=== PATIENT | female | born 1965 | race Caucasian/White ===

== ENCOUNTER → 2017-09-23 08:59 | Outpatient (CLI) | payer OTHER, SELFPAY ==
[2017-09-29 11:31] LABS: HPV APTIMA, High Risk Negative (Negative)
== END ==
PROVIDERS: Visit Provider Nurse Practitioner Women's Health
DX: Z12.4 Encounter for screening for malignant neoplasm of cervix (principal)
CPT/HCPCS: 88175; G0145

== ENCOUNTER → 2017-09-27 09:44 | Outpatient (CLI) | payer OTHER, SELFPAY ==
[2017-09-27 11:16] LABS: Cholesterol 294 mg/dL (200); Glucose 109 mg/dL (74-106); High Density Lipoprotein 46 mg/dL; Thyroid Stim Hormone (TSH) 1.38 uIU/mL (0.358-3.74); Triglycerides 156 mg/dL; Very Low Density Lipoprotein 31 mg/dL (5-40)
== END ==
PROVIDERS: Family Provider Preventive Medicine Occupational Medicine; PCP Preventive Medicine Occupational Medicine; Visit Provider Nurse Practitioner Women's Health
DX: R63.8 Other symptoms and signs concerning food and fluid intake (principal); R63.5 Abnormal weight gain; R53.83 Other fatigue
CPT/HCPCS: 36415; 80061; 82947; 84443

== ENCOUNTER → 2017-10-04 09:40 | Outpatient (CLI) | payer OTHER, SELFPAY ==
[2017-10-04 09:44] LABS: Bacteria 0 SEEN /hpf (None Seen); Mucous, Urine 0 SEEN /hpf (<or=2+)
[2017-10-04 12:17] LABS: Absolute Lymphocyte Count 1.94 X10^3/ul (0.83-4.51); Absolute Neutrophil Count 4.3 X10^3/uL (2.0-7.7); Basophil# 0.02 X10^3/uL; Basophil% 0.3 % (0-1); Eosinophil# 0.15 X10^3/uL; Eosinophils% 2.1 % (0-5); Hematocrit 41.5 % (37-47); Hemoglobin 13.7 g/dl (12.0-15.0); Lymphocyte # 1.94 X10^3/ul (4.0); Lymphocyte % 27.5 % (19-41); Mean Platelet Vol. 9.7 fl (6.2-12.0); Monocyte# 0.67 X10^3/uL; Monocyte% 9.5 % (0-10); Neutrophil # 4.25 X10^3/uL (2.7-7.7); Neutrophil % 60.2 % (47-70); Platelet Count 306 K/mm3 (150-450); RBC Distribution Width SD 43.3 fl (35.1-43.9); Red Blood Count 4.56 M/mm3 (4.2-5.4); White Blood Count 7.1 K/mm3 (4.4-11.0)
[2017-10-04 12:18] LABS: Color, Urine Yellow (Yellow); Glucose, Dipstick Normal (Normal); Ketone-Dipstick Negative (Negative); Leukocyte Esterase-Dipstick 100 /ul (Negative); Nitrite-Dipstick Negative (Negative); Occult Blood-Urine 10 /ul (Negative); Protein-Dipstick Negative (Negative); Urine Bilirubin Dipstick Negative (Negative); Urine Clarity Sl. Cloudy (Clear); Urine Urobilinogen Normal (Normal)
[2017-10-04 12:21] LABS: POSITIVE COUNT NO; POSITIVE DIFFERENTIAL NO; POSITIVE MORPHOLOGY NO
[2017-10-04 12:24] LABS: Red Blood Cells-Urine 0-5 SEEN /hpf (0-5); Squamous Epithelial Cells - UA 0-5 SEEN /hpf (5-10); White Blood Cells 10-25 SEEN /hpf (0-5)
[2017-10-04 12:38] LABS: ALB/GLOB Ratio 1.1 RATIO (0.9-2.4); AST(SGOT) 22 U/L (15-37); Alanine Aminotransfer ALT/SGPT 36 U/L (13-56); Albumin, Serum 3.9 g/dL (3.2-5.0); Alkaline Phosphatase 115 U/L (45-117); Anion Gap 8 (5-15); BUN 11 mg/dL (7-18); BUN/Creat Ratio 15.3 RATIO (10-20); Calcium,Total 8.8 mg/dL (8.5-10.1); Chloride 106 mmol/L (98-107); Creatinine, Serum 0.72 mg/dL (0.55-1.02); EST Glomerular Filtration Rate 91 mL/min (>60); Est Glom Filt Rate - Afr Amer 110 mL/min (>60); Globulin 3.7 g/dL (2.2-4.2); Glucose 97 mg/dL (74-106); Potassium 3.9 mmol/L (3.5-5.1); Protein, Total 7.6 g/dL (6.4-8.2); Sodium Level 140 mmol/L (136-145)
[2017-10-04 12:44] LABS: Hemoglobin A1c 5.9 % (4.2-6.3)
== END ==
PROVIDERS: Family Provider Family Medicine; PCP Family Medicine; Visit Provider Family Medicine
DX: I10 Essential (primary) hypertension (principal); R73.09 Other abnormal glucose
CPT/HCPCS: 36415; 80053; 81001; 83036; 85025

== ENCOUNTER → 2017-10-28 13:32 | Outpatient (CLI) | payer OTHER, SELFPAY ==
--- NOTE | 2017-10-28 13:33 | ECHOD_ITS ---
Reason For Study: MVP Procedure This was a 2D Doppler, Color Flow transthoracic echocardiogram. Exam performed in department. Left Ventricle Normal LV size. Left ventricular systolic function is normal. The estimated ejection fraction is 60 %. Normal diastology for age. No regional wall motion abnormalities noted. Right Ventricle Normal RV size. Normal systolic function. Atria Normal left atrium. Normal right atrium. Mitral Valve Normal mitral valve. Mild (1+) eccentric mitral valve insufficiency. Tricuspid Valve Normal tricuspid valve. Mild (1+) tricuspid valve insufficiency. Pulmonary artery systolic pressure is 30 mmHg. Aortic Valve Normal aortic valve. Pulmonic Valve Normal pulmonic valve. Great Vessels Normal aortic root. The pulmonary artery is normal size. Inferior vena cava collapse with respiration. Pericardium/Pleural No pericardial effusion. MMode/2D Measurements & Calculations LVIDd: 4.3 cm IVSd: 0.95 cm Ao root diam: 3.0 cm LVIDs: 2.8 cm LVPWd: 0.95 cm LA dimension: 3.7 cm RVDd: 2.2 cm FS: 34.1 % LAV(MOD-bp): 46.6 ml LA A4 area: 16.7 cm2 RA A4 area: 8.1 cm2 LAV(MOD-bp) Indexed: 23.8 ml/m2 LAV(MOD-sp2): 46.1 ml LAV(MOD-sp4): 46.5 ml Doppler Measurements & Calculations MV E max lamine: 93.3 cm/sec Lat Peak E' Lamine: 8.8 cm/sec Med Peak E' Lamine: 6.7 cm/sec MV A max lamine: 86.8 cm/sec E/E' lat: 10.6 E/E' med: 13.9 MV E/A: 1.1 Ao V2 max: 122.9 cm/sec LV V1 max: 117.5 cm/sec PA V2 max: 85.9 cm/sec Ao max P.0 mmHg LV V1 max P.5 mmHg PI end-d lamine: 91.0 cm/sec TR max lamine: 253.5 cm/sec TR max P.8 mmHg Interpretation Summary Normal LV size. Left ventricular systolic function is normal. The estimated ejection fraction is 60 %. Normal diastology for age. Structurally normal valves. Ordering Physician: Bertin Moore Referring Physician: Bertin Moore Performed By: Grace Rocha, EVELIO, RVT
== END ==
PROVIDERS: Family Provider Family Medicine; PCP Family Medicine; Visit Provider Family Medicine
DX: I34.1 Nonrheumatic mitral (valve) prolapse (principal)
CPT/HCPCS: 93306

== ENCOUNTER → 2017-11-03 09:09 | Outpatient (CLI) | payer OTHER, SELFPAY ==
[2017-11-03 10:37] LABS: Anion Gap 9 (5-15); BUN 16 mg/dL (7-18); Calcium,Total 9.1 mg/dL (8.5-10.1); Chloride 103 mmol/L (98-107); Creatinine, Serum 0.73 mg/dL (0.55-1.02); EST Glomerular Filtration Rate 90 mL/min (>60); Est Glom Filt Rate - Afr Amer 109 mL/min (>60); Glucose 101 mg/dL (74-106); Potassium 3.6 mmol/L (3.5-5.1); Sodium Level 138 mmol/L (136-145)
== END ==
PROVIDERS: Family Provider Family Medicine; PCP Family Medicine; Visit Provider Family Medicine
DX: I10 Essential (primary) hypertension (principal)
CPT/HCPCS: 36415; 80048

== ENCOUNTER → 2018-01-31 09:28 | Outpatient (CLI) | payer OTHER, SELFPAY ==
[2018-01-31 10:27] LABS: Hematocrit 40.3 % (37-47); Hemoglobin 13.1 g/dl (12.0-15.0); Mean Corp Hgb Conc 32.5 g/gl (32-36); Mean Corpuscular Hgb 30.1 pg (27.0-32.0); Mean Corpuscular Volume 92.6 fL (81-99); Mean Platelet Vol. 9.2 fl (6.2-12.0); Platelet Count 302 K/mm3 (150-450); RBC Distribution Width CV 12.7 % (11.6-14.6); RBC Distribution Width SD 42.2 fl (35.1-43.9); Red Blood Count 4.35 M/mm3 (4.2-5.4); White Blood Count 7.6 K/mm3 (4.4-11.0)
[2018-01-31 10:30] LABS: Scan Indicated on CBC? Y/N NO
[2018-01-31 10:40] LABS: Hemoglobin A1c 5.5 % (4.2-6.3)
[2018-01-31 10:52] LABS: AST(SGOT) 17 U/L (15-37); Alanine Aminotransfer ALT/SGPT 26 U/L (13-56); Alkaline Phosphatase 101 U/L (45-117); Anion Gap 3 (5-15); BUN 16 mg/dL (7-18); BUN/Creat Ratio 19.5 RATIO (10-20); Calcium,Total 9.3 mg/dL (8.5-10.1); Chloride 103 mmol/L (98-107); Cholesterol 149 mg/dL (200); Creatinine, Serum 0.82 mg/dL (0.55-1.02); EST Glomerular Filtration Rate 78 mL/min (>60); Est Glom Filt Rate - Afr Amer 95 mL/min (>60); Globulin 3.9 g/dL (2.2-4.2); Glucose 111 mg/dL (74-106); High Density Lipoprotein 50 mg/dL; Potassium 3.9 mmol/L (3.5-5.1); Protein, Total 7.9 g/dL (6.4-8.2); Sodium Level 137 mmol/L (136-145); Triglycerides 132 mg/dL; Very Low Density Lipoprotein 26 mg/dL (5-40)
== END ==
PROVIDERS: Family Provider Family Medicine; PCP Family Medicine; Visit Provider Family Medicine
DX: I10 Essential (primary) hypertension (principal); E78.5 Hyperlipidemia, unspecified
CPT/HCPCS: 36415; 80053; 80061; 83036; 85027

== ENCOUNTER → 2018-06-03 10:14 | Outpatient (CLI) | payer OTHER, SELFPAY ==
[2018-06-03 12:56] LABS: Absolute Lymphocyte Count 1.69 X10^3/ul (0.83-4.51); Absolute Neutrophil Count 3.5 X10^3/uL (2.0-7.7); Basophil# 0.02 X10^3/uL; Basophil% 0.3 % (0-1); Eosinophil# 0.09 X10^3/uL; Eosinophils% 1.5 % (0-5); Hematocrit 41.2 % (37-47); Hemoglobin 13.3 g/dl (12.0-15.0); Lymphocyte # 1.69 X10^3/ul (4.0); Lymphocyte % 28.5 % (19-41); Mean Corp Hgb Conc 32.3 g/gl (32-36); Mean Corpuscular Hgb 29.8 pg (27.0-32.0); Mean Corpuscular Volume 92.4 fL (81-99); Mean Platelet Vol. 9.6 fl (6.2-12.0); Monocyte# 0.57 X10^3/uL; Monocyte% 9.6 % (0-10); Neutrophil # 3.54 X10^3/uL (2.7-7.7); Neutrophil % 59.9 % (47-70); Platelet Count 308 K/mm3 (150-450); RBC Distribution Width CV 12.8 % (11.6-14.6); RBC Distribution Width SD 42.1 fl (35.1-43.9); Red Blood Count 4.46 M/mm3 (4.2-5.4); White Blood Count 5.9 K/mm3 (4.4-11.0)
[2018-06-03 12:57] LABS: POSITIVE COUNT NO; POSITIVE DIFFERENTIAL NO; POSITIVE MORPHOLOGY NO
[2018-06-03 13:15] LABS: Hemoglobin A1c 5.4 % (4.2-6.3)
[2018-06-03 13:19] LABS: AST(SGOT) 16 U/L (15-37); Alanine Aminotransfer ALT/SGPT 21 U/L (13-56); Albumin, Serum 3.8 g/dL (3.2-5.0); Alkaline Phosphatase 83 U/L (45-117); Anion Gap 9 (5-15); BUN 21 mg/dL (7-18); BUN/Creat Ratio 28.6 RATIO (10-20); Calcium,Total 9.1 mg/dL (8.5-10.1); Chloride 104 mmol/L (98-107); Cholesterol 138 mg/dL (200); Creatinine, Serum 0.74 mg/dL (0.55-1.02); EST Glomerular Filtration Rate 89 mL/min (>60); Est Glom Filt Rate - Afr Amer 107 mL/min (>60); Globulin 3.7 g/dL (2.2-4.2); Glucose 88 mg/dL (74-106); High Density Lipoprotein 44 mg/dL; Potassium 3.6 mmol/L (3.5-5.1); Protein, Total 7.5 g/dL (6.4-8.2); Sodium Level 140 mmol/L (136-145); Triglycerides 79 mg/dL; Very Low Density Lipoprotein 16 mg/dL (5-40)
--- OUTSIDE RECORDS SUMMARY | 2018-07-29 05:19 | XMS RPT_ITS ---
:1965 Author Organization OHIP Care Team Providers Name Role Phone Vickei Emery Attending Unavailable Bertin Moore Attending Unavailable Bertin Moore Referring Unavailable Bertin Moore Primary Care Unavailable Astrid Ball Attending Unavailable Bertin Moore Referring Unavailable Bertin Moore Attending Unavailable Bertin Moore Referring Unavailable Bertin Moore Primary Care Unavailable Bertin Moore Attending Unavailable Bertin Moore Primary Care Unavailable Bertin Moore Attending Unavailable Bertin Moore Referring Unavailable Bertin Moore Primary Care Unavailable Bertin Moore Attending Unavailable Bertin Moore Primary Care Unavailable LizzyAstrid Attending Unavailable Calhoun, Astrid Referring Unavailable Srinivasan Ward Primary Care Unavailable Calhoun, Astrid Attending Unavailable Lizzy, Astrid Referring Unavailable Lizzy, Astrid Attending Unavailable PROBLEMS PROBLEMS DATE TYPE CONDITION / CODE ATTENDING STATUS SOURCE 06/07/2018 Unknown Z97.5 - Presence of Cal[place]oun[place]na cannony Active [facility] (intrauterine) [facility] contraceptive [facility] device / Repository Z97.5(ICD-10) 06/07/2018 Unknown Z34.90 - Encounter Lizzy, Astrid Active [facility] for supervision of [facility] normal , Hospital unspecified, Repository unspecified trimester / Z34.90(ICD-10) 11/23/2017 Unknown I34.1 - Vickie [place] Active [facility] Nonrheumatic mitral Community (valve) prolapse / Hospital I34.1(ICD-10) Repository 09/23/2017 Unknown R53.83 - Other Calhoun, Astrid Active [facility] fatigue / Community R53.83(ICD-10) Hospital Repository 09/23/2017 Unknown R63.5 - Abnormal Lizzy, Astrid Active [facility] weight gain / Community R63.5(ICD-10) Hospital Repository 09/23/2017 Unknown R63.8 - Other Calhoun, Astrid Active [facility] symptoms and signs Community concerning food and Hospital fluid intake / Repository R63.8(ICD-10) 09/23/2017 Unknown Z12.31 - Encounter Calhoun, Astrid Active [facility] for screening [facility] mammogram for Hospital malignant neoplasm Repository of breast / Z12.31(ICD-10) 09/24/2017 Unknown Z12.4 - Encounter Lizzy, Astrid Active [facility] for screening for [facility] malignant neoplasm Hospital of cervix / Repository Z12.4(ICD-10) PROCEDURES PROCEDURES No Procedure Records FoundRESULTS RESULTS 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 [place] [address] OFFICE VISIT Date of Service: 09/23/17 MR#: [id number] Acct: [id number] Name: PAULINA RUBIO Rep #: [id number] : 1965 Provider: KIM Ball Age/Sex: 51/F Location: [facility] [place] Status: Signed with Addenda ADDENDUM by KIM Ball on 06/17/18 at 1118 Addendum entered and electronically signed by JOHN Oro 06/17/18 11:18: Rectal exam was deferred. No masses palpated Assessment AND Plan 1. Encounter for gynecological examination without abnormal finding Z01.419 2. Encounter for IUD removal Z30.432 Orders Orders: 3. Pap smear for cervical cancer screening Z12.4 Orders Orders: 4. Encounter for screening mammogram for malignant neoplasm of breast Z12.31 Plan - JOHN Oro Completed breast and pelvic exam Reviewed diet and exercise Pap thin prep pap with HPV Mammogram ordered Mirena IUD removed. 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 Required: No Is patient in pain?: No Allergies No Known Allergies Allergy (Verified 09/23/17 15:08) Medications levonorgestrel 20 mcg/24 hr (5 years) intrauterine device 1 insert INTRAUTERINE ONCE 09/23/17 [History Confirmed 09/23/17] Is last menstrual period known: Yes Last Menstral Period: 09/19/17 Post menopausal: No [facility] : No [facility] Family History Sister Diabetes Father Diabetes Social History alcohol intake: never substance use type: does not use caffeine: Yes what type of physical activity do you participate in: none seatbelt use: always do you feel safe at home: Yes additional social history: - Don-Diabetica 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 DatName GA/WeeksOutcome Route [facility] LocaProviderFOB e ht en ia tn 09/22/95[place] 10/29/98[facility] Encounter for routine gynecological examination: Details: PAULINA RUBIO is a 51 year old who presents for annual exam. Mirena IUD in place for menorrhagia >5 years. Had first full menses this week. Last PAP: 2012 History of abnormal PAP: no Last mammogram: > 1 yr ago History of abnormal mammogram: no Female Reproductive History Last Menstral Period: 09/19/17 Exam Const General: cooperative, healthy appearing, no acute distress, well developed Orientation: alert, oriented to person, oriented to place HENME Head: normal to inspection Neck Neck: normal visual inspection Thyroid: thyroid normal Lymphatic: no lymphadenopathy noted Chest Breast inspection: normal inspection of the breasts, normal inspection of the axillae Breast palpation: normal palpation of the breasts, normal palpation of the axillae, no axillary lymphadenopathy Resp Effort AND Inspection: normal respiratory effort GI Palpation: soft, nontender, no masses Rectal Exam: mass, deferred External Female Exam: normal external appearance, normal appearance of the urethra Urethra: normal appearance of the urethra, normal palpation Speculum Exam - Vagina: normal appearance of the vagina, normal vaginal discharge Speculum Exam - Cervix: normal appearance of the cervix, other (pap collected) Bimanual Exam- Vagina AND Uterus: normal bimanual exam, uterine size normal, uterine shape normal, uterus non-tender Bimanual Exam- Adnexa, other: normal adnexae, no adnexal masses, adnexae non-tender, pelvic support normal Pelvic Support: normal Other: IUD easily removed Neuro General: alert, oriented x3 Psych Affect: normal affect Office Procedures IUD Removal IUD Removal Details: Sign out documentation: Completed Procedure: Speculum placed in vagina, IUD string visualized and grasped with ring forceps. Assessment AND Plan 1. Encounter for gynecological examination without abnormal finding Z01.419 2. Encounter for IUD removal Z30.432 Orders Orders: 3. Pap smear for cervical cancer screening Z12.4 Orders Orders: 4. Encounter for screening mammogram for malignant neoplasm of breast Z12.31 Plan Completed breast and pelvic exam Reviewed diet and exercise Pap thin prep pap with HPV Mammogram ordered Mirena IUD removed. Discussed that if recurrence of heavy, consider replacement of mirena IUD RTO 1 year, prn with problems Astrid Ball INTERNAL CONTROL ANALYST Orders Orders: Plan Detail Other Orders Orders: Coding Level of Care Code Off vis,est,prev 40-64yrs Diagnoses Encounter for gynecological examination without abnormal finding Z01.419 Gynecological examination findings: abnormal findings ABSENT Encounter for IUD removal Z30.432 Pap smear for cervical cancer screening Z12.4 Encounter for screening mammogram for malignant neoplasm of breast Z12.31 09/23/17 1642 <Electronically signed by Astrid LOPEZ> Date Astrid LOPEZ Cosigner Signature: Date (if applicable) CC: 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 [address] [place] [address] OFFICE VISIT Date of Service: 06/07/18 MR#: [id number] Acct: [id number] Name: PAULINA RUBIO Rep #: [id number] : 1965 Provider: KIM Ball Age/Sex: 52/F [place] [facility] [place]: Signed Intake Vital Signs06/07/18 Height 5 ft 5 in 06/07/18 Weight: 171 lb 06/07/18 Body Mass Index (BMI) 28.4 06/07/18 Blood Pressure 122/84 H Intake Visit Reasons: INSERT MIRENA IUD Garage Manager Required: No Is patient in pain?: No Allergies No Known Allergies Allergy (Verified 06/07/18 13:42) Medications hydrochlorothiazide 12.5 mg tablet 12.5 mg PO DAILY 06/07/18 [History Confirmed 06/07/18] lisinopril 10 mg tablet 10 mg PO DAILY 06/07/18 [History Confirmed 06/07/18] rosuvastatin 20 mg tablet 20 mg PO DAILY 06/07/18 [History Confirmed 06/07/18] Is last menstrual period known: No Post menopausal: No Patient : No : No PFSH PFSH Medical History Mitral valve prolapse (Chronic) Family History Sister Diabetes Father Diabetes Social History alcohol intake: never substance use type: does not use caffeine: Yes what type of physical activity do you participate in: none seatbelt use: always do you feel safe at home: Yes additional social history: - Don-Diabetica 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 DatName GA/WeeksOutcome Route [facility] LocaProviderFOB e ht en [facility] tn 09/22/95[place] 10/29/98[facility] INSERT MIRENA IUD: Details: PAULINA RUBIO is a 52 year old who presents for Office Procedures Liletta IUD IUD GC/Chlamydia:: not done Test: Yes positive Consent Signed: Yes Time out checklist: patient, procedure, site marked/identified, positioning of patient, supplies available, allergies confirmed, team agrees on procedure IUD: Yes Beth Time out time: 13:50 Details: Sign in Communication: Completed Sign out documentation: Completed The uterus sounded to 8 cm. After prepping the cervix with betadine and using sterile technique, the cervix was grasped with a single tooth tenaculum and the IUD was inserted without difficulty and the string was cut to 3cm from the external os of the cervix. All instruments were removed from the vagina and excellent hemostasis was noted. Procedure Summary: patient tolerated the procedure well without complication. levonorgestrel 20 mcg/24 hr (5 years) intrauterine device 1 insert Intrauterine ONCE IUD Details: Sign in Communication: Completed Sign out documentation: Completed The uterus sounded to [] cm. After prepping the cervix with betadine and using sterile technique, the cervix was grasped with a single tooth tenaculum and the IUD was inserted without difficulty and the string was cut to 3cm from the external os of the cervix. All instruments were removed from the vagina and excellent hemostasis was noted. Procedure Summary: patient tolerated the procedure well without complication. Office Meds levonorgestrel Performing Provider: JOHN Oro Documented (not given) by: JOHN Oro on 06/07/18 13:50 Dose Route Admin Location Lot Number Expiration Date NDC Medical Territory Manager 1 insert Intrauterine Assessment AND Plan Problems 1. Encounter for IUD insertion Z30.430 2. Menorrhagia with regular cycle N92.0 Plan Reviewed S AND S infection and condom use. Written information given RTO 6 weeks Orders Orders: Medications New: Coding Level of Care Code No Charge Diagnoses Encounter for IUD insertion Z30.430 Menorrhagia with regular cycle N92.0 Additional Codes IUD (69679) 06/07/18 1511 <Electronically signed by Astrid LOPEZ> Date Astrid LOPEZ Cosigner Signature: Date (if applicable) CC: CBC W/DIFF, AUTOMATED Collected: 06/03/2018 Status: F Source: [facility] 10:46 AM [facility] REPOSITORY TYPE CODE TESTS RESULT OUT OF RANGE REFERENCE UNITS LAB L100.1000 4.4-11.0 K/mm3 Normal WBC 5.9 LAB L100.1200 4.2-5.4 M/mm3 Normal RBC 4.46 LAB L100.1300 12.0-15.0 g/dl Normal HGB 13.3 LAB L100.1400 37-47 % Normal HCT 41.2 LAB L100.1500 81-99 fL Normal MCV 92.4 LAB L100.1600 27.0-32.0 pg Normal MCH 29.8 LAB L100.1700 32-36 g/gl Normal MCHC 32.3 LAB L100.1810 11.6-14.6 % Normal RDW CV 12.8 LAB L100.1820 35.1-43.9 fl Normal RDW SD 42.1 LAB L100.1900 150-450 K/mm3 Normal PLT 308 LAB L100.2000 6.2-12.0 fl Normal MPV 9.6 LAB L100.2100 47-70 % Normal NEUT% 59.9 LAB L100.2200 19-41 % Normal LY% 28.5 LAB L100.2300 0-10 % Normal MONO% 9.6 LAB L100.2400 0-5 % Normal EO% 1.5 LAB L100.2500 0-1 % Normal BASO% 0.3 LAB L100.2550 0.0-0.9 % Normal IM GRAN % 0.200 Result Comment: IG% - Immature Granulocytes (promyelocytes, myelocytes and metamyelocytes) > 1% indicates that a LEFT SHIFT is Present. LAB L100.2620 2.0-7.7 X10 3/uL Normal Absolute Neut 3.5 LAB L100.2720 0.83-4.51 X10 3/ul Normal Absolute Lymph 1.69 Performed By: #### L100.0100 #### [facility] [address] [place], [place], [address] HEMOGLOBIN A1C Collected: 06/03/2018 Status: F Source: [place] 10:46 AM [facility] REPOSITORY TYPE CODE TESTS RESULT OUT OF RANGE REFERENCE UNITS LAB L501.9985 4.2-6.3 % Normal HGB A1C 5.4 Performed By: #### L501.9985 #### [facility] [address] [place], [place], [address] COMPREHENSIVE METABOLIC Collected: 06/03/2018 Status: F Source: [facility] 10:46 AM [facility] REPOSITORY TYPE CODE TESTS RESULT OUT OF RANGE REFERENCE UNITS LAB L501.0100 74-106 mg/dL Normal GLU 88 Result Comment: Please note revised GLUCOSE reference range effective 2017. LAB L501.1000 7-18 mg/dL High BUN 21 LAB L501.1100 0.55-1.02 mg/dL Normal CREAT,SERUM 0.74 Result Comment: The validity of the calculated GFR AND GFRAA in patients over 70 years has not been determined. Clinical correlation is essential. LAB L501.1110 >60 mL/min Normal EST GFR 89 Result Comment: Non- GFR Calc LAB L501.1115 >60 mL/min Normal EST GFR - AA 107 Result Comment: GFR Calc LAB L501.1300 10-20 RATIO High BUN/CRE 28.6 LAB L501.1500 6.4-8.2 g/dL T Normal PROT 7.5 LAB L501.1800 3.2-5.0 g/dL Normal ALB 3.8 LAB L501.1950 2.2-4.2 g/dL Normal GLOB 3.7 LAB L501.2000 0.9-2.4 RATIO Normal A/G 1.0 LAB L501.2200 8.5-10.1 mg/dL CA Normal 9.1 LAB L501.4100 15-37 U/L Normal AST 16 LAB L501.4305 45-117 U/L Normal ALK P 83 LAB L501.4405 13-56 U/L Normal ALT 21 LAB L501.4600 0.20-1.00 mg/dL T Normal BILI 0.30 LAB L501.5300 136-145 mmol/L NA Normal 140 LAB L501.5600 3.5-5.1 mmol/L K Normal 3.6 LAB L501.5900 98-107 mmol/L CL Normal 104 LAB L501.6100 21.0-32.0 mmol/L Normal CO2 27.0 LAB L501.6200 5-15 Normal GAP 9 Performed By: #### L500.4050, L500.4100 #### [facility] [address] [place], [place], [address] LIPID PROFILE Collected: 06/03/2018 Status: F Source: [place] 10:46 AM [facility] REPOSITORY TYPE CODE TESTS RESULT OUT OF RANGE REFERENCE UNITS LAB L501.4900 200 mg/dL Normal CHOL 138 Result Comment: <200 mg/dL Desirable 200-240 mg/dL Borderline >240 mg/dL High Risk LAB L501.5000 mg/dL Normal TRIG 79 Result Comment: The drugs N-Acetylcysteine and Metamizole may falsely depress this assay. Serum Triglycerides Reference Interval Normal <150 mg/dL Borderline high 150 - 199 mg/dL High 200 - 499 mg/dL Very High > or = 500 mg/dL LAB L501.6400 mg/dL Normal HDL 44 Result Comment: The drugs N-Acetylcysteine and Metamizole may falsely depress this assay. Reference Range HDL <40 mg/dL Low HDL Cholesterol HDL >or= 60 mg/dL High HDL Cholesterol LAB L501.6500 0-130 mg/dL Normal LDL 78 LAB L501.6600 5-40 mg/dL Normal VLDL 16 Performed By: #### L500.4050, L500.4100 #### [facility] [place], [address] CBC-COMPLETE BLOOD CNT Collected: 01/31/2018 Status: F Source: [place] NO DIFF 9:51 AM [facility] REPOSITORY Order Comment: Order Date: 01/31/18 Order Info: [id number] - CBC TYPE CODE TESTS RESULT OUT OF RANGE REFERENCE UNITS LAB L100.1000 4.4-11.0 K/mm3 Normal WBC 7.6 LAB L100.1200 4.2-5.4 M/mm3 Normal RBC 4.35 LAB L100.1300 12.0-15.0 g/dl Normal HGB 13.1 LAB L100.1400 37-47 % Normal HCT 40.3 LAB L100.1500 81-99 fL Normal MCV 92.6 LAB L100.1600 27.0-32.0 pg Normal MCH 30.1 LAB L100.1700 32-36 g/gl Normal MCHC 32.5 LAB L100.1810 11.6-14.6 % Normal RDW CV 12.7 LAB L100.1820 35.1-43.9 fl Normal RDW SD 42.2 LAB L100.1900 150-450 K/mm3 Normal PLT 302 LAB L100.2000 6.2-12.0 fl Normal MPV 9.2 Performed By: #### L100.0500, L501.9985, L500.4050, L500.4100 #### [facility] [address] [place], [address] HEMOGLOBIN A1C Collected: 01/31/2018 Status: F Source: [place] 9:51 AM [facility] REPOSITORY Order Comment: Order Date: 01/31/18 Order Info: [id number] - A1C TYPE CODE TESTS RESULT OUT OF RANGE REFERENCE UNITS LAB L501.9985 4.2-6.3 % Normal HGB A1C 5.5 Performed By: #### L100.0500, L501.9985, L500.4050, L500.4100 #### [facility] [address] [place], [place], [address] COMPREHENSIVE METABOLIC Collected: 01/31/2018 Status: F Source: [facility] 9:51 AM [facility] REPOSITORY Order Comment: Order Date: 01/31/18 Order Info: [id number] - CMP Order Info: [id number] - LIPID TYPE CODE TESTS RESULT OUT OF RANGE REFERENCE UNITS LAB L501.0100 74-106 mg/dL High GLU 111 Result Comment: Fasting Glucose result from 100 to 125 mg/dL suggests IMPAIRED HOMEOSTASIS per A.D.A. criteria. Please note revised GLUCOSE reference range effective 2017. LAB L501.1000 7-18 mg/dL Normal BUN 16 LAB L501.1100 0.55-1.02 mg/dL Normal CREAT,SERUM 0.82 Result Comment: The validity of the calculated GFR AND GFRAA in patients over 70 years has not been determined. Clinical correlation is essential. LAB L501.1110 >60 mL/min Normal EST GFR 78 Result Comment: Non- GFR Calc LAB L501.1115 >60 mL/min Normal EST GFR - AA 95 Result Comment: GFR Calc LAB L501.1300 10-20 RATIO Normal BUN/CRE 19.5 LAB L501.1500 6.4-8.2 g/dL T Normal PROT 7.9 LAB L501.1800 3.2-5.0 g/dL Normal ALB 4.0 LAB L501.1950 2.2-4.2 g/dL Normal GLOB 3.9 LAB L501.2000 0.9-2.4 RATIO Normal A/G 1.0 LAB L501.2200 8.5-10.1 mg/dL CA Normal 9.3 LAB L501.4100 15-37 U/L Normal AST 17 LAB L501.4305 45-117 U/L Normal ALK P 101 LAB L501.4405 13-56 U/L Normal ALT 26 LAB L501.4600 0.20-1.00 mg/dL T Normal BILI 0.30 LAB L501.5300 136-145 mmol/L NA Normal 137 LAB L501.5600 3.5-5.1 mmol/L K Normal 3.9 LAB L501.5900 98-107 mmol/L CL Normal 103 LAB L501.6100 21.0-32.0 mmol/L Normal CO2 31.0 LAB L501.6200 5-15 Low GAP 3 Performed By: #### L100.0500, L501.9985, L500.4050, L500.4100 #### [facility] [address] [place], [address] LIPID PROFILE Collected: 01/31/2018 Status: F Source: [place] 9:51 AM [facility] REPOSITORY Order Comment: Order Date: 01/31/18 Order Info: [id number] - CMP Order Info: [id number] - LIPID TYPE CODE TESTS RESULT OUT OF RANGE REFERENCE UNITS LAB L501.4900 200 mg/dL Normal CHOL 149 Result Comment: <200 mg/dL Desirable 200-240 mg/dL Borderline >240 mg/dL High Risk LAB L501.5000 mg/dL Normal TRIG 132 Result Comment: The drugs N-Acetylcysteine and Metamizole may falsely depress this assay. Serum Triglycerides Reference Interval Normal <150 mg/dL Borderline high 150 - 199 mg/dL High 200 - 499 mg/dL Very High > or = 500 mg/dL LAB L501.6400 mg/dL Normal HDL 50 Result Comment: The drugs N-Acetylcysteine and Metamizole may falsely depress this assay. Reference Range HDL <40 mg/dL Low HDL Cholesterol HDL >or= 60 mg/dL High HDL Cholesterol LAB L501.6500 0-130 mg/dL Normal LDL 73 LAB L501.6600 5-40 mg/dL Normal VLDL 26 Performed By: #### L100.0500, L501.9985, L500.4050, L500.4100 #### [facility] [address] [place], [address] BASIC METABOLIC Collected: 11/03/2017 Status: F Source: [place] PROFILE (BMP) 9:10 AM [facility] REPOSITORY Order Comment: Order Date: 11/03/17 Order Info: [id number] - BMP TYPE CODE TESTS RESULT OUT OF RANGE REFERENCE UNITS LAB L501.0100 74-106 mg/dL Normal GLU 101 Result Comment: Fasting Glucose result from 100 to 125 mg/dL suggests IMPAIRED HOMEOSTASIS per A.D.A. criteria. Please note revised GLUCOSE reference range effective 2017. LAB L501.1000 7-18 mg/dL Normal BUN 16 LAB L501.1100 0.55-1.02 mg/dL Normal CREAT,SERUM 0.73 Result Comment: The validity of the calculated GFR AND GFRAA in patients over 70 years has not been determined. Clinical correlation is essential. LAB L501.1110 >60 mL/min Normal EST GFR 90 Result Comment: Non- GFR Calc LAB L501.1115 >60 mL/min Normal EST GFR - AA 109 Result Comment: GFR Calc LAB L501.1300 10-20 RATIO High BUN/CRE 22.0 LAB L501.2200 8.5-10.1 mg/dL CA Normal 9.1 LAB L501.5300 136-145 mmol/L NA Normal 138 LAB L501.5600 3.5-5.1 mmol/L K Normal 3.6 LAB L501.5900 98-107 mmol/L CL Normal 103 LAB L501.6100 21.0-32.0 mmol/L Normal CO2 26.0 LAB L501.6200 5-15 Normal GAP 9 Performed By: #### L500.2500 #### [facility] [address] [place], [address] ECHOCARDIOGRAM COMPLETE Observed: 10/28/2017 Status: F Source: [place] 3:31 PM [facility] REPOSITORY [facility] Cardiovascular Services [address] [place] [address] Echo Complete 10/28/17 1337 MR#: [id number] Acct: [id number] Name: PAULINA RUBIO Rep #: [id number] : 1965 52 From: Emery Johnston MD Attending Dr: Bertin Moore MD Status: REG CLI Ordering Dr: Bertin Moore MD Date: 10/28/17 Location: [facility] Sex: F C Admitted: Reason For Study: MVP Procedure This was a 2D Doppler, Color Flow transthoracic echocardiogram. Exam performed in department. Left Ventricle Normal LV size. Left ventricular systolic function is normal. The estimated ejection fraction is 60 %. Normal diastology for age. No regional wall motion abnormalities noted. Right Ventricle Normal RV size. Normal systolic function. Atria Normal left atrium. Normal right atrium. Mitral Valve Normal mitral valve. Mild (1+) eccentric mitral valve insufficiency. Tricuspid Valve Normal tricuspid valve. Mild (1+) tricuspid valve insufficiency. Pulmonary artery systolic pressure is 30 mmHg. Aortic Valve Normal aortic valve. Pulmonic Valve Normal pulmonic valve. Great Vessels Normal aortic root. The pulmonary artery is normal size. Inferior vena cava collapse with respiration. Pericardium/Pleural No pericardial effusion. MMode/2D Measurements AND Calculations LVIDd: 4.3 cm IVSd: 0.95 cm Ao root diam: 3.0 cm LVIDs: 2.8 cm LVPWd: 0.95 cm LA dimension: 3.7 cm RVDd: 2.2 cm FS: 34.1 % LAV(MOD-bp): 46.6 ml LA A4 area: 16.7 cm2 RA A4 area: 8.1 cm2 LAV(MOD-bp) Indexed: 23.8 ml/m2 LAV(MOD-sp2): 46.1 ml LAV(MOD-sp4): 46.5 ml Doppler Measurements AND Calculations MV E max lamine: 93.3 cm/sec Lat Peak E' Lamine: 8.8 cm/sec Med Peak E' Lamine: 6.7 cm/sec MV A max lamine: 86.8 cm/sec E/E' lat: 10.6 E/E' med: 13.9 MV E/A: 1.1 Ao V2 max: 122.9 cm/sec LV V1 max: 117.5 cm/sec PA V2 max: 85.9 cm/sec Ao max P.0 mmHg LV V1 max P.5 mmHg PI end-d lamine: 91.0 cm/sec TR max lamine: 253.5 cm/sec TR max P.8 mmHg Interpretation Summary Normal LV size. Left ventricular systolic function is normal. The estimated ejection fraction is 60 %. Normal diastology for age. Structurally normal valves. Ordering Physician: Bertin Moore Referring Physician: Bertin Moore Performed By: Grace Rocha RDCS, RVT 10/28/17 1531 Date Emery Johnston MD CC: Bertin Moore MD Date Dictated: 10/28/17 1337 Date Transcribed: 10/28/17 1531 Chipping Machine Operator: Signed URINALYSIS, COMPLETE Collected: 10/04/2017 Status: F Source: [place] 9:41 AM [facility] REPOSITORY Order Comment: How was Urine Obtained? CLEAN CATCH TYPE CODE TESTS RESULT OUT OF RANGE REFERENCE UNITS LAB L400.3000 Yellow COLOR Normal Yellow LAB L400.3050 Clear Normal CLARITY Sl. Cloudy LAB L400.3200 Normal mg/dl Normal GLUCOSE, UR Normal LAB L400.3300 Negative mg/dL Normal BILIRUBIN URINE Negative LAB L400.3400 Negative mg/dl Normal KETONE UR Negative LAB L400.3465 1.002-1.030 Normal SP.GR. DIPSTX 1.010 LAB L400.3550 5.0 - 8.0 pH UR Normal 8.0 LAB L400.3600 Negative mg/dl PROT Normal DIPSTX Negative LAB L400.3700 Normal mg/dl Normal UROBILI Normal LAB L400.3750 Negative Normal NITRITE UR Negative LAB L400.3780 Negative /ul High 10 OCCULT BLOOD-UR LAB L400.3800 Negative /ul High LEUK ESTERASE 100 LAB L400.4050 0-5 /hpf WBC Normal 10-25 SEEN LAB L400.4100 0-5 /hpf Normal RBC-UA 0-5 SEEN LAB L400.4150 5-10 /hpf SQUAM Normal EPI 0-5 SEEN LAB L400.4300 None Seen /hpf 0 Normal BACTERIA SEEN LAB L400.4350 <or=2+ /hpf 0 Normal MUCUS, URINE SEEN Performed By: #### L400.0001 #### [facility] [address] [place], [address] CBC W/DIFF, AUTOMATED Collected: 10/04/2017 Status: F Source: [place] 9:41 [facility] REPOSITORY Order Comment: Order Date: 10/04/17 Order Info: 0184-1 - CBCD TYPE CODE TESTS RESULT OUT OF RANGE REFERENCE UNITS LAB L100.1000 4.4-11.0 K/mm3 Normal WBC 7.1 LAB L100.1200 4.2-5.4 M/mm3 Normal RBC 4.56 LAB L100.1300 12.0-15.0 g/dl Normal HGB 13.7 LAB L100.1400 37-47 % Normal HCT 41.5 LAB L100.1500 81-99 fL Normal MCV 91.0 LAB L100.1600 27.0-32.0 pg Normal MCH 30.0 LAB L100.1700 32-36 g/gl Normal MCHC 33.0 LAB L100.1810 11.6-14.6 % Normal RDW CV 13.0 LAB L100.1820 35.1-43.9 fl Normal RDW SD 43.3 LAB L100.1900 150-450 K/mm3 Normal PLT 306 LAB L100.2000 6.2-12.0 fl Normal MPV 9.7 LAB L100.2100 47-70 % Normal NEUT% 60.2 LAB L100.2200 19-41 % Normal LY% 27.5 LAB L100.2300 0-10 % Normal MONO% 9.5 LAB L100.2400 0-5 % Normal EO% 2.1 LAB L100.2500 0-1 % Normal BASO% 0.3 LAB L100.2550 0.0-0.9 % Normal IM GRAN % 0.400 Result Comment: IG% - Immature Granulocytes (promyelocytes, myelocytes and metamyelocytes) > 1% indicates that a LEFT SHIFT is Present. LAB L100.2620 2.0-7.7 X10 3/uL Normal Absolute Neut 4.3 LAB L100.2720 0.83-4.51 X10 3/ul Normal Absolute Lymph 1.94 Performed By: #### L100.0100, L500.4050, L501.9985 #### [facility] [address] [place], [place], [address] COMPREHENSIVE METABOLIC Collected: 10/04/2017 Status: F Source: [place] 9:41 AM [facility] REPOSITORY Order Comment: Order Date: 10/04/17 Order Info: 0786-1 - CMP TYPE CODE TESTS RESULT OUT OF RANGE REFERENCE UNITS LAB L501.0100 74-106 mg/dL Normal GLU 97 Result Comment: Please note revised GLUCOSE reference range effective 2017. LAB L501.1000 7-18 mg/dL Normal BUN 11 LAB L501.1100 0.55-1.02 mg/dL Normal CREAT,SERUM 0.72 Result Comment: The validity of the calculated GFR AND GFRAA in patients over 70 years has not been determined. Clinical correlation is essential. LAB L501.1110 >60 mL/min Normal EST GFR 91 Result Comment: Non- GFR Calc LAB L501.1115 >60 mL/min Normal EST GFR - AA 110 Result Comment: GFR Calc LAB L501.1300 10-20 RATIO Normal BUN/CRE 15.3 LAB L501.1500 6.4-8.2 g/dL T Normal PROT 7.6 LAB L501.1800 3.2-5.0 g/dL Normal ALB 3.9 LAB L501.1950 2.2-4.2 g/dL Normal GLOB 3.7 LAB L501.2000 0.9-2.4 RATIO Normal A/G 1.1 LAB L501.2200 8.5-10.1 mg/dL CA Normal 8.8 LAB L501.4100 15-37 U/L Normal AST 22 LAB L501.4305 45-117 U/L Normal ALK P 115 LAB L501.4405 13-56 U/L Normal ALT 36 Result Comment: Please note revised ALT reference range effective 2017. LAB L501.4600 0.20-1.00 mg/dL Normal T BILI 0.30 LAB L501.5300 136-145 mmol/L Normal NA 140 LAB L501.5600 3.5-5.1 mmol/L Normal K 3.9 LAB L501.5900 98-107 mmol/L Normal CL 106 LAB L501.6100 21.0-32.0 mmol/L Normal CO2 26.0 LAB L501.6200 5-15 Normal GAP 8 Performed By: #### L100.0100, L500.4050, L501.9985 #### [facility] [address] [place], [place], [address] HEMOGLOBIN A1C Collected: 10/04/2017 Status: F Source: [place] 9:41 AM [facility] REPOSITORY Order Comment: Order Date: 10/04/17 Order Info: 4548-4 - A1C TYPE CODE TESTS RESULT OUT OF RANGE REFERENCE UNITS LAB L501.9985 4.2-6.3 % Normal HGB A1C 5.9 Performed By: #### L100.0100, L500.4050, L501.9985 #### [facility] [address] [place], [address] LIPID PROFILE Collected: 09/27/2017 Status: F Source: [place] 9:52 AM [facility] REPOSITORY TYPE CODE TESTS RESULT OUT OF RANGE REFERENCE UNITS LAB L501.4900 200 mg/dL High CHOL 294 Result Comment: <200 mg/dL Desirable 200-240 mg/dL Borderline >240 mg/dL High Risk LAB L501.5000 mg/dL Normal TRIG 156 Result Comment: The drugs N-Acetylcysteine and Metamizole may falsely depress this assay. Serum Triglycerides Reference Interval Normal <150 mg/dL Borderline high 150 - 199 mg/dL High 200 - 499 mg/dL Very High > or = 500 mg/dL LAB L501.6400 mg/dL Normal HDL 46 Result Comment: The drugs N-Acetylcysteine and Metamizole may falsely depress this assay. Reference Range HDL <40 mg/dL Low HDL Cholesterol HDL >or= 60 mg/dL High HDL Cholesterol LAB L501.6500 0-130 mg/dL High LDL 217 LAB L501.6600 5-40 mg/dL Normal VLDL 31 Performed By: #### L500.4100, L501.0100, L501.9520 #### [facility] [address] [place], [address] GLUCOSE Collected: 09/27/2017 Status: F Source: [place] 9:52 AM [facility] REPOSITORY TYPE CODE TESTS RESULT OUT OF RANGE REFERENCE UNITS LAB L501.0100 74-106 mg/dL High GLU 109 Result Comment: Fasting Glucose result from 100 to 125 mg/dL suggests IMPAIRED HOMEOSTASIS per A.D.A. criteria. Please note revised GLUCOSE reference range effective 2017. Performed By: #### L500.4100, L501.0100, L501.9520 #### [facility] [address] [place], [address] THYROID STIM HORMONE Collected: 09/27/2017 Status: F Source: [place] ([place]) 9:52 AM [facility] REPOSITORY TYPE CODE TESTS RESULT OUT OF RANGE REFERENCE UNITS LAB L501.9520 0.358-3.74 uIU/mL Normal TSH 1.38 Performed By: #### L500.4100, L501.0100, L501.9520 #### [facility] [address] [place], [address] PAP IG HPV 16/18,45 Collected: 09/23/2017 Status: F Source: [place] 2:30 PM [facility] REPOSITORY Order Comment: CYTOLOGY INFORMATION: - CLINICAL INFORMATION: - DATE LMP/MENOPAUSE: ANNUAL - COLLECTION VIAL: Thin Prep Vial - 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 of containers..01 ThinPrep Vial TYPE CODE TESTS RESULT OUT OF RANGE REFERENCE UNITS LAB L7400.0800 . Normal DIAGN Comment Result Comment: NEGATIVE FOR INTRAEPITHELIAL LESION AND MALIGNANCY. LAB L7400.0900 . Normal ADEQ Comment Result Comment: Satisfactory for evaluation. Endocervical and/or squamous metaplastic cells (endocervical component) are present. LAB L7400.1400 . Normal PERFORM Comment Result Comment: Taylor Baron, Service Desk Team Lead (ASCP) LAB L7400.2575 . Normal TEST METHOD Comment Result Comment: This liquid based ThinPrep(R) pap test was screened with the use of an image guided system. LAB L7400.2600 . Normal . COMM LAB L7400.2700 . Normal PAPSMR Comment Result Comment: The Pap smear is a screening test designed to aid in the detection of premalignant and malignant conditions of the uterine cervix. It is not a diagnostic procedure and should not be used as the sole means of detecting cervical cancer. Both false-positive and false-negative reports do occur. LAB L7400.2760 Negative Normal HPV APTIMA, Negative HR Result Comment: This test detects fourteen high-risk HPV types (16/18/31/33/35/39/45/ 51/52/56/58/59/66/68) without differentiation. Performed at: [address] [id number] Knife Changer: Mayuri Hayes MD, Phone: [phone] Performed at: =G - [facility] [address] [place] [id number] Knife Changer: Mayuri Hayes MD, Phone: [phone] Performed By: #### L7400.0280 #### [facility] (refer to report for specific site) refer to report for address and phone number ALLERGIES ALLERGIES DATE TYPE / CODE NAME / CODE REACTION SEVERITY SOURCE 06/07/2018 Drug No Known Unknown [facility] Allergy/4160 Allergies/F00 Hospital 13135(SNOMED 9452243(RXNOR Repository CT) M) ENCOUNTERS ENCOUNTERS ADMIT/DISCHARGE ACCOUNT ADMITTING ENCOUNTER LOCATION SOURCE NUMBER CLASS 06/07/2018/ [id number] Ambulatory BMSBuilding:B [facility] 8 9 [facility] Repository 06/03/2018 [id number] Ambulatory [facility] 6 [facility] ing:LAB Repository 01/31/2018 [id number] Ambulatory [facility] 9 [facility] ing:LAB Repository 11/03/2017 [id number] Ambulatory [facility] 2 [facility] ing:MFPLAB Repository 10/28/2017 [id number] Ambulatory BMSBuilding:W [facility] 0 [facility] Repository 10/28/2017 [id number] Ambulatory [facility] 6 [facility] ing:[facility] Repository 10/04/2017 [id number] Ambulatory [facility] 9 [facility] ing:MFPLAB Repository 09/27/2017 [id number] Ambulatory [facility] 6 [facility] ing:LAB Repository 09/23/2017/ [id number] Ambulatory BMSBuilding:B [facility] 8 7 [facility] Repository 09/23/2017 [id number] Ambulatory [facility] 9 [facility] ing:LAB Repository PAYERS PAYERS ENCOUNTER GUARANTOR PAYER SUBSCRIBER SOURCE 06/07/2018 JUAN FRANCISCO A Primary JUAN FRANCISCO A Frank [id number] Insurance:fitaborate TROXELLDOB: [facility] Vaximm CPolicy Number: [id number], [place] [id number] Repository [address]Ckh: (330) Date:8941-71-21WQ [phone] () [address] [place] [phone]: 06/07/2018 Secondary NOT GIVENUNK [facility] Insurance:SELF PAY [facility] Effective Repository Date:2018-06-07 06/03/2018 JUAN FRANCISCO A Primary JUAN FRANCISCO A Frank [id number] Insurance:VILLEDA RULE TROXELLDOB: Community [facility] [place] [facility] Number: [id number] [place], [place] [id number] Repository [address]Vzp: (330) Date:6678-05-60HI [phone] () [address] [place] [phone]: 06/03/2018 Secondary NOT GIVENUNK Frank Insurance:SELF PAY [facility] Number: Effective Repository Date:2018-06-03 01/31/2018 Juan Francisco A Primary Juan Francisco A Frank [id number] N Insurance:VILLEDA RULE TroxellDOB: [facility] [place] [facility] Number: [id number], [place] [id number] Repository [address]Fvo: (330) Date:6118-31-02WV [phone] () [address] [place] [phone]: 01/31/2018 Secondary NOT GIVENUNK [facility] Insurance:SELF PAY [facility] Number: Effective Repository Date:2018-01-31 11/03/2017 Juan Francisco A Primary Juan Francisco A [facility] [id number] N Insurance:VILLEDA RULE TroxellDOB: Community [place] [facility] Number: [id number], [place] [id number] Repository [address]Aqm: (330) Date:0548-50-27UT [phone] () [address] [place] [phone]: 11/03/2017 Secondary NOT GIVENUNK [facility] Insurance:SELF PAY [facility] Number: Effective Repository Date:2017-11-03 10/28/2017 Juan Francisco A Primary Juan Francisco A Frank [id number] N Insurance:VILLEDA RULE TroxellDOB: Community [place] CPolicy Number: [id number], [place] [id number] Repository [address]Ved: (330) Date:2339-66-48IQ [phone] (HP) [address] [place] [phone]: 10/28/2017 Secondary NOT GIVENUNK [facility] Insurance:SELF PAY [facility] Number: Effective Repository Date:2017-10-28 10/28/2017 Juan Francisco A Primary Juan Francisco A [facility] [id number] N Insurance:VILLEDA RULE TroxellDOB: Community [place] [facility] Number: [id number], [place] [id number] Repository [address]Opq: ([phone]) Date:8940-97-36SS [phone] (HP) [address] [place] [phone]: 10/28/2017 Secondary NOT GIVENUNK [facility] Insurance:SELF PAY [facility] Number: Effective Repository Date:2017-10-06 10/04/2017 Juan Francisco A Primary Juan Francisco A [facility] [id number] N Insurance:VILLEDA RULE TroxellDOB: Community [place] [facility] Number: [id number], [place] [id number] Repository 128[address]Tyi: (330) Date:2030-83-86DV [phone] (HP) [address] [place] [phone]: 10/04/2017 Secondary NOT GIVENUNK [facility] Insurance:SELF PAY [facility] Number: Effective Repository Date:2017-10-04 09/27/2017 Juan Francisco A Primary Juan Francisco A Frank [id number] N Insurance:VILLEDA RULE TroxellDOB: Community [place] CPolicy Number: [id number], [place] [id number] Repository [address]Vrx: (330) Date:8304-28-25UY [phone] (HP) [address] [place] [phone]: 09/27/2017 Secondary NOT GIVENUNK [facility] Insurance:SELF PAY [facility] Number: Effective Repository Date:2017-09-27 09/23/2017 Juan Francisco A Primary Juan Francisco A Frank [id number] N Insurance:VILLEDA RULE TroxellDOB: Community [place] [facility] Number: [id number], [place] [id number] Repository [address]Mib: 330) Date:1099-11-73FJ [phone] () [address]UREMLAP, [place] [phone]: 09/23/2017 Secondary NOT GIVENUNK [facility] Insurance:SELF PAY [facility] Number: Effective Repository Date:2017-09-21 09/23/2017 Juan Francisco A Primary Juan Francisco A Frank [id number] N Insurance:VILLEDA RULE TroxellDOB: [facility] Number: [id number], [place] [id number] Repository [address]Wmf: ([phone]) Date:2352-90-83DU [phone] () [address]IOQBREMLAP, [place] [address]KR: 09/23/2017 Secondary NOT GIVENUNK [facility] Insurance:SELF PAY [facility] Number: Effective Repository Date:2017-09-23
== END ==
PROVIDERS: Family Provider Family Medicine; PCP Family Medicine; Referring Provider Family Medicine; Visit Provider Family Medicine
DX: I10 Essential (primary) hypertension (principal); E78.5 Hyperlipidemia, unspecified; R73.02 Impaired glucose tolerance (oral)
CPT/HCPCS: 36415; 80053; 80061; 83036; 85025

== ENCOUNTER → 2018-11-10 | Outpatient (CLI) | payer OTHER, SELFPAY ==
[2018-09-26 09:26] VITALS: BMI 28.4
[2018-11-10 12:40] LABS: Anion Gap 7 (5-15); BUN 20 mg/dL (7-18); BUN/Creat Ratio 25.3 RATIO (10-20); Calcium,Total 9.2 mg/dL (8.5-10.1); Chloride 104 mmol/L (98-107); Creatinine, Serum 0.79 mg/dL (0.55-1.02); EST Glomerular Filtration Rate 82 mL/min (>60); Est Glom Filt Rate - Afr Amer 99 mL/min (>60); Glucose 109 mg/dL (74-106); Potassium 4.1 mmol/L (3.5-5.1); Sodium Level 139 mmol/L (136-145)
== END | disposition home or self-care (01) ==
LOC: MFPLAB 10:13
PROVIDERS: Family Provider Family Medicine; PCP Family Medicine; Referring Provider Family Medicine; Visit Provider Family Medicine
DX: I10 Essential (primary) hypertension (principal)
CPT/HCPCS: 36415; 80048

== ENCOUNTER → 2018-12-07 | Outpatient (CLI) | payer OTHER, SELFPAY ==
[2018-09-26 09:26] VITALS: BMI 28.4
[2018-12-07 12:05] LABS: Absolute Lymphocyte Count 1.73 X10^3/ul (0.83-4.51); Absolute Neutrophil Count 4.1 X10^3/uL (2.0-7.7); Basophil# 0.01 X10^3/uL; Basophil% 0.2 % (0-1); Eosinophil# 0.15 X10^3/uL; Eosinophils% 2.3 % (0-5); Hematocrit 41.6 % (37-47); Hemoglobin 13.7 g/dl (12.0-15.0); Lymphocyte # 1.73 X10^3/ul (4.0); Lymphocyte % 26.3 % (19-41); Mean Corp Hgb Conc 32.9 g/gl (32-36); Mean Corpuscular Hgb 29.6 pg (27.0-32.0); Mean Corpuscular Volume 89.8 fL (81-99); Mean Platelet Vol. 9.8 fl (6.2-12.0); Monocyte# 0.57 X10^3/uL; Monocyte% 8.6 % (0-10); Neutrophil # 4.12 X10^3/uL (2.7-7.7); Neutrophil % 62.4 % (47-70); POSITIVE COUNT NO; POSITIVE DIFFERENTIAL NO; POSITIVE MORPHOLOGY NO; Platelet Count 235 K/mm3 (150-450); RBC Distribution Width CV 13.2 % (11.6-14.6); RBC Distribution Width SD 43.1 fl (35.1-43.9); Red Blood Count 4.63 M/mm3 (4.2-5.4); White Blood Count 6.6 K/mm3 (4.4-11.0)
[2018-12-07 12:51] LABS: Hemoglobin A1c 6.1 % (4.2-6.3)
[2018-12-07 13:00] LABS: ALB/GLOB Ratio 1.2 RATIO (0.9-2.4); AST(SGOT) 20 U/L (15-37); Alanine Aminotransfer ALT/SGPT 30 U/L (13-56); Albumin, Serum 3.8 g/dL (3.2-5.0); Alkaline Phosphatase 95 U/L (45-117); Anion Gap 7 (5-15); BUN 17 mg/dL (7-18); BUN/Creat Ratio 21.9 RATIO (10-20); Calcium,Total 8.7 mg/dL (8.5-10.1); Chloride 105 mmol/L (98-107); Cholesterol 139 mg/dL (200); Creatinine, Serum 0.78 mg/dL (0.55-1.02); EST Glomerular Filtration Rate 83 mL/min (>60); Est Glom Filt Rate - Afr Amer 101 mL/min (>60); Globulin 3.1 g/dL (2.2-4.2); Glucose 97 mg/dL (74-106); High Density Lipoprotein 52 mg/dL; Potassium 3.6 mmol/L (3.5-5.1); Protein, Total 6.9 g/dL (6.4-8.2); Sodium Level 140 mmol/L (136-145); Triglycerides 85 mg/dL; Very Low Density Lipoprotein 17 mg/dL (5-40)
== END | disposition home or self-care (01) ==
LOC: MFPLAB 10:14
PROVIDERS: Family Provider Family Medicine; PCP Family Medicine; Referring Provider Family Medicine; Visit Provider Family Medicine
DX: I10 Essential (primary) hypertension (principal); E78.5 Hyperlipidemia, unspecified; R73.02 Impaired glucose tolerance (oral)
CPT/HCPCS: 36415; 80053; 80061; 83036; 85025

== ENCOUNTER 2019-01-13 07:31 | Day surgery (SDC) | payer OTHER, SELFPAY ==
[2018-09-26 09:26] VITALS: BMI 28.4
[2019-01-13] VITALS (10 sets, daily range): BP systolic 97–129; BP diastolic 62–99; PULSE 76–89; RESP 16; TEMP 35.9–36.3; O2SAT 94–100; BMI 28.1
--- NOTE | 2019-01-13 07:49 | PCM.HP.STD ---
Problem List (1) Screening for intestinal cancer Status: Acute History of Present Illness Date of Admission: 01/13/19 The patient is a 53 year old F who presents today for screening colonoscopy. She had a very remote colonoscopy at age 21. She has no family history of colon polyps or colon cancer. Only intermittently which she noticed some blood on the tissue paper and relates that to likely hemorrhoids. No current abdominal pain no weight loss. Her only chronic medical issues of mild hypertension. She otherwise enjoys good health. Past Medical History Medical History: Medical History (Last Reviewed 09/26/18 @ 09:10 by Janay Sandoval) Mitral valve prolapse I34.1 Allergies No Known Allergies Allergy (Verified 01/13/19 07:40) Home Medications: Ambulatory Orders Medication Instructions Recorded hydrochlorothiazide 12.5 mg tablet 12.5 mg PO DAILY 06/07/18 levonorgestrel 20 mcg/24 hours (5 1 insert INTRAUTERINE ONCE #1 ea 06/07/18 yrs) 52 mg intrauterine device rosuvastatin 20 mg tablet 20 mg PO QHS 06/07/18 Spironolactone [Aldactone] 50 mg PO DAILY 01/11/19 Smoking Status: Never smoker Review of Systems Constitutional: Denies: Weight Change HEENT: Denies: Difficulty Swallowing Cardiovascular: Denies: Chest Pain Respiratory: Denies: Cough Gastrointestinal: Denies: Abdominal Pain Endocrine: Denies: Change in Body Habitus VTE Information - Inpt Only VTE Present on Admission: No Patient Problems: Active and Suspected Problems (Last Reviewed 09/26/18 @ 09:10 by Janay Sandoval) Screening for intestinal cancer (Acute) - Physical Exam General: Alert, Oriented x3, Cooperative, No apparent distress, Well developed HEENT: Atraumatic Oral: Moist Mucosa Lungs: Clear to auscultation, Normal air movement Cardiovascular: Regular rate, Regular Rhythm Abdomen: Bowel Sounds Present, Soft, Non Tender, Non-Distended Extremities: No clubbing Psych/Mental Status: Normal Affect Body Mass Index (BMI) 28.4 Laboratory Tests Past 24 Hrs 01/13/19 07:30 Urine Test Pending Assessment/Plan All Active Problems (Last Reviewed 09/26/18 @ 09:10 by Janay Sandoval) Screening for intestinal cancer (Acute) I am recommending the patient is screening colonoscopy with possible biopsy or polypectomy is indicated. She is aware of the technique, benefits, risks, alternatives. She has had an opportunity to ask and have questions answered. She presents via our open access program today. Srinivasan Villareal M.D., F.A.C.S.
[2019-01-13 07:54] LABS: Internal QC Validated? YES +Cl - CLEAR BKGD; Pregnancy, Urine Negative Negative
--- NOTE | 2019-01-13 08:30 | COLBX_PTH ---
PATIENT: PAULINA RUBIO LOC: EN U#:[id number] AGE/SX: 53/F ROOM: RE01/13/[address]: Dr. Srinivasan Villareal MD : 1965 BED: DIS: 01/13/2019 SPEC #: [id number] RECD: 01/13/19 10:48 STATUS: ADITYA KINCAID #: [id number] TEENA: 01/13/19 08:[address]: Srinivasan Villareal DEPT: SURGICAL PATHOLOGY RECD BY: Ninfa Choudhury ENTERED: 01/13/19 11:45 SP TYPE: COLON BX OTHR DR: Dr. Bertin Moore MD Tissues: Rectum, NOS Procedures: Surgery Specimen Level IV HEADER OPERATION: Colonoscopy - open access (MOD) PRE-OP DIAGNOSIS: Screening TISSUE SUBMITTED: Rectal polyp biopsy MICROSCOPIC DIAGNOSIS Rectal polyp, biopsy: Consistent with serrated adenoma. AM:yran 01/16/19 MICROSCOPIC DESCRIPTION Slides are reviewed. GROSS DESCRIPTION Received in fixative is one container labeled with the patient's name and designated rectal polyp biopsy. The specimen consists of two irregular fragments of light wallis soft tissue that in aggregate measure 0.5 x 0.3 x 0.1 cm. The specimen is totally submitted in one cassette. / SJ:ryan 01/13/19 TC:5 CPT: 20105
--- NOTE | 2019-01-13 08:33 | OP.ENDO_ITS ---
01/13/2019 Bertin Moore [address] [place] [address] Re : Colonoscopy procedure for Malinda Julian Dear Dr. Moore This procedure was performed on Sunday, January 13, 2019. My impressions and recommendations are as follows: Impressions : - Palpable rectal mass, non-thrombosed external hemorrhoids, non-thrombosed internal hemorrhoids and internal hemorrhoids that prolapse with straining, but spontaneously regress to the resting position (Grade II) found on digital rectal exam. - Tortuous colon. - One 25 mm polyp in the rectum. Right lateral aspect 3cm from anal verge. Biopsied. Recommendations : - Discharge patient to home. - Resume previous diet. - Continue present medications. - Repeat colonoscopy in 1 year for surveillance. - Return to my office in 1 week. Plan future transanal exploration with excision. My findings are described in the full procedure note, which is enclosed. If I can be of further assistance, please feel free to contact me at Doctor phone number(s): Work: . Sincerely, Srinivasan Villareal MD 01/13/2019 8:33:14 AM This report has been signed electronically.
== END 2019-01-13 09:32 | disposition home or self-care (01) ==
LOC: EN 07:32 → AC 07:33
PROVIDERS: Anesthesiology; Family Provider Family Medicine; PCP Family Medicine; Referring Provider Family Medicine; Visit Provider Surgery
PROC: 0DJD8ZZ Inspection of Lower Intestinal Tract, Via Natural or Artificial Opening Endoscopic (ICD-10-PCS; CPT 45378; principal; 2019-01-13 08:25)
DX: Z12.11 Encounter for screening for malignant neoplasm of colon (principal); K62.1 Rectal polyp; K64.1 Second degree hemorrhoids; K64.4 Residual hemorrhoidal skin tags; Q43.8 Other specified congenital malformations of intestine; I10 Essential (primary) hypertension; I34.1 Nonrheumatic mitral (valve) prolapse; Z79.899 Other long term (current) drug therapy
CPT/HCPCS: 45380; 81025; 88305; 99152; 99153; J7120

== ENCOUNTER 2019-02-15 08:07 | Day surgery (SDC) | payer OTHER, SELFPAY ==
[2019-01-19 07:37] VITALS: BMI 28.1
--- NOTE | 2019-01-19 08:06 | HP_ITS ---
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 Is patient in pain?: No Allergies No Known Allergies Allergy (Verified 01/19/19 07:37) Medications hydrochlorothiazide 12.5 mg tablet 12.5 mg PO DAILY 06/07/18 [History Confirmed 01/19/19] rosuvastatin 20 mg tablet 20 mg PO QHS 06/07/18 [History Confirmed 01/19/19] Spironolactone [Aldactone] 50 mg PO DAILY 01/11/19 [History Confirmed 01/19/19] PFSH Medical History Mitral valve prolapse (Chronic) Family History Sister Diabetes Father Diabetes Social History (Updated 01/19/19 @ 08:06 by Srinivasan Villareal MD) Smoking Status: Never smoker alcohol intake: never substance use type: does not use caffeine: Yes what type of physical activity do you participate in: none seatbelt use: always do you feel safe at home: Yes additional social history: - Don-Eliel bttn 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 On January 13, 2019 she had presented for screening colonoscopy. There was a anorectal polyp. Biopsies demonstrated a serrated adenoma. She presents now to discuss definitive treatment [facility] Medical Records Department [address] [address] Operative Report - Endoscopy MR#: [id number]:[id number] Name: MALINDA RUBIO [facility] #:[id number] : 1965 53From: Srinivasan Villareal MD PCP:Bertin Moore MD Status:[facility] 01/13/2019 Bertin Moore [address] [place] [address] Re : Colonoscopy procedure for Malinda Rubio Dear Dr. Moore This procedure was performed on Sunday, January 13, 2019. My impressions and recommendations are as follows: Impressions : - Palpable rectal mass, non-thrombosed external hemorrhoids, non-thrombosed internal hemorrhoids and internal hemorrhoids that prolapse with straining, but spontaneously regress to the resting position (Grade II) found on digital rectal exam. - Tortuous colon. - One 25 mm polyp in the rectum. Right lateral aspect 3cm from anal verge. Biopsied. Recommendations : - Discharge patient to home. - Resume previous diet. - Continue present medications. - Repeat colonoscopy in 1 year for surveillance. - Return to my office in 1 week. Plan future transanal exploration with excision. My findings are described in the full procedure note, which is enclosed. If I can be of further assistance, please feel free to contact me at Doctor phone number(s): Work: . Sincerely, Srinivasan Villareal MD 01/13/2019 8:33:14 AM This report has been signed electronically. 01/13/19 0833 Date Srinivasan Villareal MD Cosigner Signature:Date (if indicated) CC: Bertin Moore MD; Srinivasan Villareal MD ~ Date Dictated:01/13/19 0752 Date Transcribed: Transcriptionis Exam Const General: cooperative, healthy appearing, comfortable, no acute distress Nutritional Appearance: average body habitus Orientation: alert, awake, oriented x3 HENMT Head: normal to inspection Resp Effort & Inspection: normal respiratory effort Auscultation: clear to auscultation bilaterally Cardio Rate: regular rate Rhythm: regular rhythm GI Palpation: soft, no hepatosplenomegaly Auscultation: normal bowel sounds Neuro Cognition: normal cognition Extrem General: no calf tenderness bilaterally Psych Affect: normal affect Assessment & Plan Problems 1. Rectal polyp K62.1 Plan Serrated adenoma of the rectum. Not colonoscopically resectable. I proposed for the patient a transanal resection of this area. It is on the right lateral aspect approximately 3 cm from the anal verge. I propose a complete excision with likely primary mucosal repair. In detail discussed the technique, benefit, risks, alternatives. She has had an opting to ask and have questions answered. I believe that this can be accomplished with monitored anesthesia care and local anesthetic. We will schedule and proceed at her discretion. I very much appreciate the ongoing opportunity of assisting with her surgical care. CC: Dr Bertin Villareal M.D., F.A.C.S. Coding Level of Care Code Off vis,est,level 2 Diagnoses Rectal polyp K62.1 01/19/19 0806 <Electronically signed by Srinivasan maya MD> Date _ Srinivasan Villareal MD I have re-examined the patient. There are no clinical changes since date of exam.
--- NOTE | 2019-02-13 09:57 | EKG12_ITS ---
Test Reason : PRE-OP Blood Pressure : / mmHG Vent. Rate : 062 BPM Atrial Rate : 062 BPM P-R Int : 148 ms QRS Dur : 082 ms QT Int : 422 ms P-R-T Axes : 042 043 036 degrees QTc Int : 428 ms Normal sinus rhythm Normal ECG Confirmed by JOHANA PEARSON, BAHMAN ([id number]), sound editor YOLANDA PHILIP ([id number]) on 02/14/2019 12:56:51 PM Referred By: Srinivasan Villareal Confirmed By:BAHMAN VAUGHN MD
[2019-02-13 10:57] LABS: Hematocrit 43.8 % (37-47); Hemoglobin 14.3 g/dL (12.0-15.0); Mean Corp Hgb Conc 32.6 g/dL (32-36); Mean Corpuscular Volume 91.8 fL (81-99); Mean Platelet Vol. 9.5 fl (6.2-12.0); Platelet Count 252 K/mm3 (150-450); RBC Distribution Width CV 12.7 % (11.6-14.6); RBC Distribution Width SD 42.9 fl (35.1-43.9); Red Blood Count 4.77 M/mm3 (4.2-5.4); White Blood Count 7.4 K/mm3 (4.4-11.0)
[2019-02-13 11:28] LABS: Anion Gap 6 (5-15); BUN 16 mg/dL (7-18); BUN/Creat Ratio 18.5 RATIO (10-20); Calcium,Total 9.3 mg/dL (8.5-10.1); Chloride 104 mmol/L (98-107); Creatinine, Serum 0.87 mg/dL (0.55-1.02); EST Glomerular Filtration Rate 73 mL/min (>60); Est Glom Filt Rate - Afr Amer 89 mL/min (>60); Glucose 100 mg/dL (74-106); Potassium 3.9 mmol/L (3.5-5.1); Sodium Level 139 mmol/L (136-145)
[2019-02-15] VITALS (7 sets, daily range): BP systolic 108–129; BP diastolic 69–87; PULSE 68–76; RESP 12–16; TEMP 36.1–36.7; O2SAT 96–100; BMI 27.1
[2019-02-15 08:26] LABS: Internal QC Validated? YES +Cl - CLEAR BKGD
[2019-02-15 08:30] LABS: Pregnancy, Urine Negative Negative
[2019-02-15] MEDS: Fleet Enema 1 ML RECTAL (08:50)
--- NOTE | 2019-02-15 10:00 | COLBX_PTH ---
PATIENT: PAULINA RUBIO LOC: [facility] U#:[id number] AGE/SX: 53/F ROOM: RE02/15/[address]: Dr. Srinivasan Villareal MD : [id number] BED: DIS: 02/15/2019 SPEC #: [id number] RECD: 02/15/19 16:43 STATUS: ADITYA RETr #: [id number] TEENA: 02/15/19 10:[address]: Srinivasan Villareal DEPT: SURGICAL PATHOLOGY RECD BY: Umair Berry ENTERED: 02/16/19 09:34 SP TYPE: COLON BX OTHR DR: Dr. Bertin Moore MD Tissues: Rectum, NOS Procedures: Surgery Specimen Level IV HEADER OPERATION: Transanal resection of polyp PRE-OP DIAGNOSIS: Rectal polyp TISSUE SUBMITTED: Rectal polyp MICROSCOPIC DIAGNOSIS Rectal polyp, biopsy: Serrated adenoma. AM:ryan 02/17/19 MICROSCOPIC DESCRIPTION Slides are reviewed. GROSS DESCRIPTION Received in fixative is one container labeled with the patient's name and designated rectal polyp. The specimen consists of a wallis-pink measuring 2 x 1 x 1 cm. The apparent base is inked. The specimen is bisected and submitted entirely in one cassette. / SJ:ryan 02/16/19 TC:1 CPT: 38905
--- NOTE | 2019-02-15 10:50 | PCM.DC.REC ---
Discharge Diet: No Restrictions Discharge Activity: Return to Normal Activity, May Not Drive - while you are taking narcotic pain medications. Do not drive, work with heavy equipment or sign legal documents for 24 hours after your surgery. Additional Dressing/Incision Instructions:: You may utilize a sitz baths in warm soapy water for 20 minutes at a time. I encourage drinking plenty of fluids daily and taking a daily fiber supplement like Metamucil or Citrucel or FiberCon or Benefiber or generic. You may utilize the topical dibucaine ointment as needed for comfort. Anticipate some drainage and a female hygiene pad works well for this. Allergies/Adverse Reactions: Allergies No Known Allergies Allergy (Verified 02/08/19 13:02) Medications to take at Discharge hydrochlorothiazide 12.5 mg tablet 12.5 mg PO DAILY 06/07/18 levonorgestrel 20 mcg/24 hours (5 yrs) 52 mg intrauterine device 1 insert INTRAUTERINE ONCE #1 ea 06/07/18 rosuvastatin 20 mg tablet 20 mg PO QHS 06/07/18 Spironolactone [Aldactone] 50 mg PO DAILY 01/11/19 Hydrocodone Bitart/Apap 5-325 [[place] 5MG-325MG] 1 tablet PO Q6H PRN PRN 3 Days #10 tablet 02/15/19 Metronidazole 500 mg PO TID #15 tab 02/15/19 The following prescriptions were given: Metronidazole 500 mg PO TID #15 tab Transmission Status: Pending to [facility] Hydrocodone Bitart/Apap 5-325 [[place] 5MG-325MG] 1 tablet PO Q6H PRN PRN 3 Days #10 tablet PRN Reason: Pain Transmission Status: Received by [facility] Primary Care Physician: Bertin Moore MD [Primary Care Provider] - Test Results: Test results from this visit will be discussed in further detail at your follow-up appointment, if applicable. Please Follow Up With: Srinivasan Villareal MD - [phone] When: Plan to have a follow up approximately 3 weeks after surgery.
[2019-02-15] MEDS: BUPIVACAINE LIPOSOME/PF 20 ML VIAL OPERA.SITE (11:21)
[2019-02-15] MEDS: Dibucaine 30 GM Tube 1 APPLIC (11:21)
[2019-02-15] MEDS: Bupivacaine Mpf 0.5% 30 ML VIAL (11:22)
--- NOTE | 2019-02-15 11:25 | OP.PCM_ITS ---
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 53-year-old female was taken the operating placed prone jackknife on the table. 2 g of cefotetan were given intravenously. 0.5% Marcaine 30 cc mixed with 20 cc of Exparel was used as local anesthetic. A 30-gauge needle was used to slowly inject circumferentially around the anus and then a 25-gauge needle to obtain more deeper anal anesthesia. Anal speculum was placed in the right lateral rectum approximately 2 cm proximal to the anal verge the polyp was identified. I placed 3 corner holding sutures of 2-0 chromic. This allowed for clean investigation of the periphery. I used a harmonic scalpel then to excise the mucosal submucosal layer circumferentially 260 degrees around the lesion. [place] that I had complete resection of the lesion. There is no evidence of residual disease. Hemostasis was nicely intact. I did partially approximate mucosa with a running locking 2- 0 chromic. Vaseline gauze soaked with dibucaine ointment was placed within the rectum. No apparent complications. Sponge and instrument and needle counts were reported the surgeon be correct. Blood loss was minimal. She tolerated procedure well was taken to the recovery area in satisfactory condition. Specimens right lateral rectal polyp. Drains none; Blood loss minimal. Srinivasan Villareal M.D., F.A.C.S. Type of Anesthesia:: Local MAC Anesthesiologist: Vanda Wolf
== END 2019-02-15 13:43 | disposition home or self-care (01) ==
LOC: SDC 08:08 → AC 08:08
PROVIDERS: Anesthesiology; Family Provider Family Medicine; PCP Family Medicine; Referring Provider Surgery; Visit Provider Surgery
PROC: (CPT 45171; principal; 2019-02-15 10:00)
DX: D12.8 Benign neoplasm of rectum (principal); I34.1 Nonrheumatic mitral (valve) prolapse; I10 Essential (primary) hypertension; E78.00 Pure hypercholesterolemia, unspecified; Z79.899 Other long term (current) drug therapy
CPT/HCPCS: 45171; 36415; 80048; 81025; 85027; 88305; 93005; J7120

== ENCOUNTER → 2019-04-10 10:03 | Outpatient (CLI) | payer OTHER, SELFPAY ==
[2019-02-15 08:53] VITALS: BMI 27.1
[2019-04-10 12:39] LABS: ALB/GLOB Ratio 1.2 RATIO (0.9-2.4); AST(SGOT) 20 U/L (15-37); Alanine Aminotransfer ALT/SGPT 36 U/L (13-56); Albumin, Serum 3.9 g/dL (3.2-5.0); Alkaline Phosphatase 83 U/L (45-117); Anion Gap 6 (5-15); BUN 14 mg/dL (7-18); BUN/Creat Ratio 19.8 RATIO (10-20); Calcium,Total 8.9 mg/dL (8.5-10.1); Chloride 105 mmol/L (98-107); Cholesterol 122 mg/dL (200); Creatinine, Serum 0.71 mg/dL (0.55-1.02); EST Glomerular Filtration Rate 93 mL/min (>60); Est Glom Filt Rate - Afr Amer 112 mL/min (>60); Globulin 3.2 g/dL (2.2-4.2); Glucose 100 mg/dL (74-106); High Density Lipoprotein 44 mg/dL; Potassium 3.9 mmol/L (3.5-5.1); Protein, Total 7.1 g/dL (6.4-8.2); Sodium Level 141 mmol/L (136-145); Triglycerides 65 mg/dL; Very Low Density Lipoprotein 13 mg/dL (5-40)
[2019-04-10 12:42] LABS: Hemoglobin A1c 5.6 % (4.2-6.3)
== END ==
PROVIDERS: Family Provider Family Medicine; PCP Family Medicine; Visit Provider Family Medicine
DX: R73.02 Impaired glucose tolerance (oral) (principal); E78.5 Hyperlipidemia, unspecified; I10 Essential (primary) hypertension
CPT/HCPCS: 36415; 80053; 80061; 83036

== ENCOUNTER → 2019-10-27 10:11 | Outpatient (CLI) | payer OTHER, SELFPAY ==
[2019-02-15 08:53] VITALS: BMI 27.1
[2019-10-27 12:30] LABS: Absolute Lymphocyte Count 1.81 X10^3/uL (0.83-4.51); Absolute Neutrophil Count 3.4 X10^3/uL (2.0-7.7); Basophil# 0.02 X10^3/uL; Basophil% 0.3 % (0-1); Eosinophil# 0.09 X10^3/uL; Eosinophils% 1.5 % (0-5); Hematocrit 43.4 % (37-47); Lymphocyte # 1.81 X10^3/ul (4.0); Lymphocyte % 30.3 % (19-41); Mean Corp Hgb Conc 32.3 g/dL (32-36); Mean Corpuscular Volume 93.1 fL (81-99); Mean Platelet Vol. 9.7 fl (6.2-12.0); Monocyte# 0.62 X10^3/uL; Monocyte% 10.4 % (0-10); NRBC Flagged by Analyzer 0 % (0-5); Neutrophil # 3.42 X10^3/uL (2.7-7.7); Neutrophil % 57.3 % (47-70); Platelet Count 269 K/mm3 (150-450); RBC Distribution Width CV 12.8 % (11.6-14.6); RBC Distribution Width SD 43.8 fl (35.1-43.9); Red Blood Count 4.66 M/mm3 (4.2-5.4)
[2019-10-27 12:57] LABS: ALB/GLOB Ratio 1.1 RATIO (0.9-2.4); AST(SGOT) 18 U/L (15-37); Alanine Aminotransfer ALT/SGPT 39 U/L (13-56); Albumin, Serum 3.9 g/dL (3.2-5.0); Alkaline Phosphatase 98 U/L (45-117); Anion Gap 4 (5-15); BUN 17 mg/dL (7-18); BUN/Creat Ratio 22.1 RATIO (10-20); Calcium,Total 9.2 mg/dL (8.5-10.1); Chloride 104 mmol/L (98-107); Cholesterol 167 mg/dL (200); Creatinine, Serum 0.77 mg/dL (0.55-1.02); EST Glomerular Filtration Rate 84 mL/min (>60); Est Glom Filt Rate - Afr Amer 101 mL/min (>60); Globulin 3.7 g/dL (2.2-4.2); Glucose 101 mg/dL (74-106); High Density Lipoprotein 51 mg/dL; Potassium 3.7 mmol/L (3.5-5.1); Protein, Total 7.6 g/dL (6.4-8.2); Sodium Level 137 mmol/L (136-145); Triglycerides 84 mg/dL; Very Low Density Lipoprotein 17 mg/dL (5-40)
[2019-10-27 13:09] LABS: Hemoglobin A1c 5.9 % (4.2-6.3)
== END ==
PROVIDERS: PCP Family Medicine; Referring Provider Family Medicine; Visit Provider Family Medicine
DX: R73.02 Impaired glucose tolerance (oral) (principal); I10 Essential (primary) hypertension; E78.5 Hyperlipidemia, unspecified
CPT/HCPCS: 36415; 80053; 80061; 83036; 85025

== ENCOUNTER → 2020-02-23 09:20 | Outpatient (CLI) | payer OTHER, SELFPAY ==
[2019-02-15 08:53] VITALS: BMI 27.1
[2020-02-23 12:34] LABS: ALB/GLOB Ratio 1.1 RATIO (0.9-2.4); AST(SGOT) 18 U/L (15-37); Alanine Aminotransfer ALT/SGPT 32 U/L (13-56); Albumin, Serum 3.9 g/dL (3.2-5.0); Alkaline Phosphatase 95 U/L (45-117); Anion Gap 5 (5-15); BUN 15 mg/dL (7-18); BUN/Creat Ratio 21.2 RATIO (10-20); Calcium,Total 8.9 mg/dL (8.5-10.1); Chloride 105 mmol/L (98-107); Cholesterol 166 mg/dL (200); Creatinine, Serum 0.71 mg/dL (0.55-1.02); EST Glomerular Filtration Rate 92 mL/min (>60); Est Glom Filt Rate - Afr Amer 111 mL/min (>60); Globulin 3.7 g/dL (2.2-4.2); Glucose 102 mg/dL (74-106); High Density Lipoprotein 49 mg/dL; Potassium 3.4 mmol/L (3.5-5.1); Protein, Total 7.6 g/dL (6.4-8.2); Sodium Level 139 mmol/L (136-145); Triglycerides 100 mg/dL; Very Low Density Lipoprotein 20 mg/dL (5-40)
[2020-02-23 12:39] LABS: Hemoglobin A1c 5.7 % (3.8-5.6)
== END ==
PROVIDERS: PCP Family Medicine; Referring Provider Family Medicine; Visit Provider Family Medicine
DX: E78.5 Hyperlipidemia, unspecified (principal); I10 Essential (primary) hypertension; R73.02 Impaired glucose tolerance (oral)
CPT/HCPCS: 36415; 80053; 80061; 83036

== ENCOUNTER → 2020-08-02 10:06 | Outpatient (CLI) | payer OTHER, SELFPAY ==
[2019-02-15 08:53] VITALS: BMI 27.1
[2020-08-02 12:54] LABS: Hemoglobin A1c 5.8 % (3.8-5.6)
[2020-08-02 13:23] LABS: ALB/GLOB Ratio 1.2 RATIO (0.9-2.4); AST(SGOT) 16 U/L (15-37); Alanine Aminotransfer ALT/SGPT 36 U/L (13-56); Albumin, Serum 3.9 g/dL (3.2-5.0); Alkaline Phosphatase 123 U/L (45-117); Anion Gap 9 (5-15); BUN 19 mg/dL (7-18); BUN/Creat Ratio 27.7 RATIO (10-20); Calcium,Total 9.4 mg/dL (8.5-10.1); Chloride 105 mmol/L (98-107); Cholesterol 151 mg/dL (200); Creatinine, Serum 0.68 mg/dL (0.55-1.02); EST Glomerular Filtration Rate 96 mL/min (>60); Est Glom Filt Rate - Afr Amer 116 mL/min (>60); Globulin 3.2 g/dL (2.2-4.2); Glucose 95 mg/dL (74-106); High Density Lipoprotein 50 mg/dL; Potassium 3.7 mmol/L (3.5-5.1); Protein, Total 7.1 g/dL (6.4-8.2); Sodium Level 141 mmol/L (136-145); Triglycerides 82 mg/dL; Very Low Density Lipoprotein 16 mg/dL (5-40)
== END ==
PROVIDERS: PCP Family Medicine; Referring Provider Family Medicine; Visit Provider Family Medicine
DX: I10 Essential (primary) hypertension (principal); E78.5 Hyperlipidemia, unspecified; R73.02 Impaired glucose tolerance (oral)
CPT/HCPCS: 36415; 80053; 80061; 83036

== ENCOUNTER → 2020-12-06 08:29 | Outpatient (CLI) | payer OTHER, SELFPAY ==
[2019-02-15 08:53] VITALS: BMI 27.1
[2020-12-06 10:03] LABS: Absolute Lymphocyte Count 1.73 X10^3/uL (0.83-4.51); Absolute Neutrophil Count 3.6 X10^3/uL (2.0-7.7); Basophil# 0.03 X10^3/uL; Basophil% 0.5 % (0-1); Eosinophil# 0.12 X10^3/uL; Hematocrit 42.6 % (37-47); Hemoglobin 13.8 g/dL (12.0-15.0); Lymphocyte # 1.73 X10^3/ul (0.83-4.51); Lymphocyte % 28.4 % (19-41); Mean Corp Hgb Conc 32.4 g/dL (32-36); Mean Corpuscular Hgb 29.4 pg (27.0-32.0); Mean Corpuscular Volume 90.6 fL (81-99); Mean Platelet Vol. 9.7 fl (6.2-12.0); Monocyte# 0.59 X10^3/uL; Monocyte% 9.7 % (0-10); NRBC Flagged by Analyzer 0 % (0-5); Neutrophil # 3.61 X10^3/uL (2.7-7.7); Neutrophil % 59.1 % (47-70); Platelet Count 280 K/mm3 (150-450); RBC Distribution Width CV 12.5 % (11.6-14.6); RBC Distribution Width SD 41.3 fl (35.1-43.9); White Blood Count 6.1 K/mm3 (4.4-11.0)
[2020-12-06 10:27] LABS: Hemoglobin A1c 5.8 % (3.8-5.6)
[2020-12-06 10:29] LABS: AST(SGOT) 17 U/L (15-37); Alanine Aminotransfer ALT/SGPT 27 U/L (13-56); Albumin, Serum 3.8 g/dL (3.2-5.0); Alkaline Phosphatase 146 U/L (45-117); Anion Gap 6 (5-15); BUN 15 mg/dL (7-18); Chloride 106 mmol/L (98-107); Cholesterol 142 mg/dL (200); Creatinine, Serum 0.71 mg/dL (0.55-1.02); EST Glomerular Filtration Rate 91 mL/min (>60); Est Glom Filt Rate - Afr Amer 110 mL/min (>60); Globulin 3.9 g/dL (2.2-4.2); Glucose 117 mg/dL (74-106); High Density Lipoprotein 48 mg/dL; Potassium 3.4 mmol/L (3.5-5.1); Protein, Total 7.7 g/dL (6.4-8.2); Sodium Level 140 mmol/L (136-145); Thyroid Stim Hormone (TSH) 1.32 uIU/mL (0.358-3.74); Triglycerides 100 mg/dL; Very Low Density Lipoprotein 20 mg/dL (5-40)
== END ==
PROVIDERS: PCP Family Medicine; Referring Provider Family Medicine; Visit Provider Family Medicine
DX: I10 Essential (primary) hypertension (principal); E78.5 Hyperlipidemia, unspecified; R73.02 Impaired glucose tolerance (oral)
CPT/HCPCS: 36415; 80053; 80061; 83036; 84443; 85025

== ENCOUNTER → 2021-06-06 09:51 | Outpatient (CLI) | payer OTHER, SELFPAY ==
[2021-06-06 12:05] LABS: Absolute Lymphocyte Count 1.44 X10^3/uL (0.83-4.51); Absolute Neutrophil Count 3.8 X10^3/uL (2.0-7.7); Basophil# 0.02 X10^3/uL; Basophil% 0.3 % (0-1); Eosinophil# 0.13 X10^3/uL; Eosinophils% 2.2 % (0-5); Hematocrit 40.9 % (37-47); Hemoglobin 13.5 g/dL (12.0-15.0); Lymphocyte # 1.44 X10^3/ul (0.83-4.51); Lymphocyte % 24.1 % (19-41); Mean Corpuscular Hgb 29.5 pg (27.0-32.0); Mean Corpuscular Volume 89.5 fL (81-99); Mean Platelet Vol. 9.3 fl (6.2-12.0); Monocyte# 0.61 X10^3/uL; Monocyte% 10.2 % (0-10); NRBC Flagged by Analyzer 0 % (0-5); Neutrophil # 3.77 X10^3/uL (2.7-7.7); Platelet Count 287 K/mm3 (150-450); RBC Distribution Width CV 12.8 % (11.6-14.6); RBC Distribution Width SD 41.9 fl (35.1-43.9); Red Blood Count 4.57 M/mm3 (4.2-5.4)
[2021-06-06 12:16] LABS: ALB/GLOB Ratio 0.9 RATIO (0.9-2.4); AST(SGOT) 26 U/L (15-37); Alanine Aminotransfer ALT/SGPT 47 U/L (13-56); Albumin, Serum 3.7 g/dL (3.2-5.0); Alkaline Phosphatase 142 U/L (45-117); Anion Gap 6 (5-15); BUN 12 mg/dL (7-18); BUN/Creat Ratio 16.2 RATIO (10-20); Calcium,Total 9.4 mg/dL (8.5-10.1); Chloride 106 mmol/L (98-107); Cholesterol 140 mg/dL (200); Creatinine, Serum 0.74 mg/dL (0.55-1.02); EST Glomerular Filtration Rate 87 mL/min (>60); Est Glom Filt Rate - Afr Amer 105 mL/min (>60); Globulin 3.9 g/dL (2.2-4.2); Glucose 112 mg/dL (74-106); High Density Lipoprotein 46 mg/dL; Potassium 3.4 mmol/L (3.5-5.1); Protein, Total 7.6 g/dL (6.4-8.2); Sodium Level 140 mmol/L (136-145); Triglycerides 101 mg/dL; Very Low Density Lipoprotein 20 mg/dL (5-40)
[2021-06-06 12:37] LABS: Hemoglobin A1c 5.9 % (3.8-5.6)
== END ==
PROVIDERS: PCP Family Medicine; Referring Provider Family Medicine; Visit Provider Family Medicine
DX: E78.5 Hyperlipidemia, unspecified (principal); I10 Essential (primary) hypertension; R73.02 Impaired glucose tolerance (oral)
CPT/HCPCS: 36415; 80053; 80061; 83036; 85025

== ENCOUNTER 2021-07-18 11:54 | Outpatient (CLI) | payer OTHER, SELFPAY ==
--- NOTE | 2021-07-18 11:59 | RAD_ITS ---
STUDY: X-RAY CHEST REASON FOR EXAM: Female, 55 years old. ACUTE BRONCHITIS TECHNIQUE: PA and lateral views of the chest. COMPARISON: None. FINDINGS: Diffuse bilateral pulmonary infiltrates in a preferential peripheral distribution. This is suggestive of pneumonitis associated with Covid.There is no demonstrated pleural abnormality. Normal size heart. Normal mediastinum and joao. Normal visualized pulmonary arteries. Normal visualized aortic arch and descending thoracic aorta. There are mild degenerative changes of the visualized thoracic spine. Normal visualized ribs, clavicles, and shoulders. There is no demonstrated abnormality of the visualized soft tissue structures of the upper abdomen. RAD/Chest PA and Lateral IMPRESSION: Diffuse bilateral pulmonary infiltrates in a preferential peripheral distribution. Pneumonitis associated with cortical that should be ruled out. Electronically Signed: Hamilton Vance MD at 12:29 EST , Service support ,
== END 2021-07-18 23:59 | disposition short-term general hospital (02) ==
LOC: MTRAD 11:58
PROVIDERS: PCP Family Medicine; Referring Provider Family Medicine; Visit Provider Family Medicine
DX: J20.9 Acute bronchitis, unspecified (principal)
CPT/HCPCS: 71046

== ENCOUNTER 2021-09-25 09:48 | Outpatient (CLI) | payer OTHER, SELFPAY ==
[2021-09-25 12:08] LABS: Absolute Lymphocyte Count 1.63 X10^3/uL (0.83-4.51); Absolute Neutrophil Count 3.5 X10^3/uL (2.0-7.7); Basophil# 0.04 X10^3/uL; Basophil% 0.7 % (0-1); Eosinophil# 0.15 X10^3/uL; Eosinophils% 2.5 % (0-5); Hematocrit 43.8 % (37-47); Hemoglobin 14.5 g/dL (12.0-15.0); Lymphocyte # 1.63 X10^3/ul (0.83-4.51); Lymphocyte % 27.5 % (19-41); Mean Corp Hgb Conc 33.1 g/dL (32-36); Mean Corpuscular Hgb 30.6 pg (27.0-32.0); Mean Corpuscular Volume 92.4 fL (81-99); Mean Platelet Vol. 9.7 fl (6.2-12.0); Monocyte# 0.63 X10^3/uL; Monocyte% 10.6 % (0-10); NRBC Flagged by Analyzer 0 % (0-5); Neutrophil # 3.47 X10^3/uL (2.7-7.7); Neutrophil % 58.5 % (47-70); Platelet Count 278 K/mm3 (150-450); RBC Distribution Width SD 44.3 fl (35.1-43.9); Red Blood Count 4.74 M/mm3 (4.2-5.4); White Blood Count 5.9 K/mm3 (4.4-11.0)
[2021-09-25 12:25] LABS: Hemoglobin A1c 5.8 % (3.8-5.6)
[2021-09-25 12:36] LABS: ALB/GLOB Ratio 1.1 RATIO (0.9-2.4); AST(SGOT) 25 U/L (15-37); Alanine Aminotransfer ALT/SGPT 48 U/L (13-56); Albumin, Serum 4.1 g/dL (3.2-5.0); Alkaline Phosphatase 125 U/L (45-117); Anion Gap 7 (5-15); BUN 16 mg/dL (7-18); BUN/Creat Ratio 21.7 RATIO (10-20); Calcium,Total 9.7 mg/dL (8.5-10.1); Chloride 105 mmol/L (98-107); Cholesterol 160 mg/dL (200); Creatinine, Serum 0.74 mg/dL (0.55-1.02); EST Glomerular Filtration Rate 88 mL/min (>60); Est Glom Filt Rate - Afr Amer 106 mL/min (>60); Globulin 3.9 g/dL (2.2-4.2); Glucose 118 mg/dL (74-106); High Density Lipoprotein 51 mg/dL; Potassium 3.9 mmol/L (3.5-5.1); Sodium Level 139 mmol/L (136-145); T4 Free Direct 0.96 ng/dL (0.76-1.46); Thyroid Stim Hormone (TSH) 1.41 uIU/mL (0.358-3.74); Triglycerides 83 mg/dL; Very Low Density Lipoprotein 17 mg/dL (5-40)
== END 2021-09-25 23:59 | disposition home or self-care (01) ==
LOC: MFPLAB 09:49
PROVIDERS: PCP Family Medicine; Referring Provider Family Medicine; Visit Provider Family Medicine
DX: E78.5 Hyperlipidemia, unspecified (principal); L65.9 Nonscarring hair loss, unspecified; R73.02 Impaired glucose tolerance (oral)
CPT/HCPCS: 36415; 80053; 80061; 83036; 84439; 84443; 85025

== ENCOUNTER 2022-01-30 09:04 | Outpatient (CLI) | payer OTHER, SELFPAY ==
[2022-01-30 09:06] LABS: Bacteria 0 SEEN /hpf (None Seen); Mucous, Urine 0 SEEN /hpf (<or=2+); Red Blood Cells-Urine 0 SEEN /hpf (0-5)
[2022-01-30 10:06] LABS: Basophil# 0.04 X10^3/uL; Basophil% 0.6 % (0-1); Eosinophil# 0.19 X10^3/uL; Eosinophils% 2.9 % (0-5); Hematocrit 40.9 % (37-47); Hemoglobin 13.4 g/dL (12.0-15.0); Lymphocyte % 27.3 % (19-41); Mean Corp Hgb Conc 32.8 g/dL (32-36); Mean Corpuscular Hgb 29.7 pg (27.0-32.0); Mean Corpuscular Volume 90.7 fL (81-99); Mean Platelet Vol. 9.3 fl (6.2-12.0); Monocyte# 0.58 X10^3/uL; Monocyte% 8.8 % (0-10); NRBC Flagged by Analyzer 0 % (0-5); Neutrophil # 3.95 X10^3/uL (2.7-7.7); Neutrophil % 59.9 % (47-70); Platelet Count 265 K/mm3 (150-450); RBC Distribution Width CV 13.1 % (11.6-14.6); RBC Distribution Width SD 42.9 fl (35.1-43.9); Red Blood Count 4.51 M/mm3 (4.2-5.4); White Blood Count 6.6 K/mm3 (4.4-11.0)
[2022-01-30 10:15] LABS: Color, Urine Yellow (Yellow); Glucose, Dipstick Normal (Normal); Ketone-Dipstick Negative (Negative); Leukocyte Esterase-Dipstick 500 /ul (Negative); Nitrite-Dipstick Negative (Negative); Occult Blood-Urine Negative /ul (Negative); Protein-Dipstick Negative (Negative); Urine Bilirubin Dipstick Negative (Negative); Urine Clarity Clear (Clear); Urine Urobilinogen Normal (Normal)
[2022-01-30 10:35] LABS: Squamous Epithelial Cells - UA 0-5 SEEN /hpf (5-10); White Blood Cells 5-10 SEEN /hpf (0-5)
[2022-01-30 10:49] LABS: ALB/GLOB Ratio 1.1 RATIO (0.9-2.4); AST(SGOT) 19 U/L (15-37); Alanine Aminotransfer ALT/SGPT 31 U/L (13-56); Albumin, Serum 3.9 g/dL (3.2-5.0); Alkaline Phosphatase 128 U/L (45-117); Anion Gap 5 (5-15); BUN 15 mg/dL (7-18); BUN/Creat Ratio 19.2 RATIO (10-20); Calcium,Total 9.5 mg/dL (8.5-10.1); Chloride 106 mmol/L (98-107); Cholesterol 143 mg/dL (200); Creatinine, Serum 0.78 mg/dL (0.55-1.02); EST Glomerular Filtration Rate 82 mL/min (>60); Est Glom Filt Rate - Afr Amer 99 mL/min (>60); Globulin 3.6 g/dL (2.2-4.2); Glucose 127 mg/dL (74-106); High Density Lipoprotein 46 mg/dL; Potassium 3.6 mmol/L (3.5-5.1); Protein, Total 7.5 g/dL (6.4-8.2); Sodium Level 138 mmol/L (136-145); Triglycerides 106 mg/dL; Very Low Density Lipoprotein 21 mg/dL (5-40)
== END 2022-01-30 23:59 | disposition home or self-care (01) ==
LOC: MFPLAB 09:04
PROVIDERS: PCP Family Medicine; Referring Provider Family Medicine; Visit Provider Family Medicine
DX: I10 Essential (primary) hypertension (principal); R73.02 Impaired glucose tolerance (oral); E78.5 Hyperlipidemia, unspecified
CPT/HCPCS: 36415; 80053; 80061; 81001; 83036; 85025

== ENCOUNTER → 2022-03-20 | Outpatient (CLI) | payer OTHER, SELFPAY ==
--- NOTE | 2022-03-20 09:22 | RAD_ITS ---
STUDY: X-RAY - LEFT FOOT CLINICAL: Female, 56 years old. 3 week history of right heel pain. TECHNIQUE: 3 view(s) of the foot. COMPARISON: None. FINDINGS: Normal talus, calcaneus, and tarsal bones. Normal visualized subtalar, talonavicular, calcaneocuboid, tarsal and tarsometatarsal articulations. Normal metatarsi. Normal metatarsophalangeal joint of the great toe. Normal tibial and fibular sesamoid bones. Normal interphalangeal joint of the great toe. Normal phalanges of the great toe. Normal second through fifth metatarsophalangeal joints. Normal interphalangeal joints and phalanges of the lesser toes. The soft tissue structures are unremarkable. RAD/Foot min 3 Views IMPRESSION: Normal x-ray examination of the foot. Electronically Signed: Hamilton Vance MD at 12:40 EDT ,
--- NOTE | 2022-03-20 09:23 | RAD_ITS ---
STUDY: X-RAY - RIGHT FOOT CLINICAL: Female, 56 years old. HEEL PAIN TECHNIQUE: 3 view(s) of the foot. COMPARISON: None. FINDINGS: There is a plantar calcaneal spur. Normal visualized subtalar, talonavicular, calcaneocuboid, tarsal and tarsometatarsal articulations. Normal metatarsi. Normal metatarsophalangeal joint of the great toe. Normal tibial and fibular sesamoid bones. Normal interphalangeal joint of the great toe. Normal phalanges of the great toe. Normal second through fifth metatarsophalangeal joints. Normal interphalangeal joints and phalanges of the lesser toes. The soft tissue structures are unremarkable. RAD/Foot min 3 Views IMPRESSION: Plantar spur. Electronically Signed: Hamilton Vance MD at 12:40 EDT ,
== END | disposition home or self-care (01) ==
LOC: MTRAD 09:21
PROVIDERS: PCP Family Medicine; Referring Provider Family Medicine; Visit Provider Family Medicine
DX: M79.671 Pain in right foot (principal); M79.672 Pain in left foot
CPT/HCPCS: 73630

== ENCOUNTER → 2022-06-17 | Outpatient (CLI) | payer OTHER, SELFPAY ==
[2022-06-17 12:22] LABS: Absolute Lymphocyte Count 1.55 X10^3/uL (0.83-4.51); Absolute Neutrophil Count 4.8 X10^3/uL (2.0-7.7); Basophil# 0.04 X10^3/uL; Basophil% 0.6 % (0-1); Eosinophil# 0.16 X10^3/uL; Eosinophils% 2.2 % (0-5); Hematocrit 43.5 % (37-47); Hemoglobin 14.5 g/dL (12.0-15.0); Lymphocyte # 1.55 X10^3/ul (0.83-4.51); Lymphocyte % 21.3 % (19-41); Mean Corp Hgb Conc 33.3 g/dL (32-36); Mean Corpuscular Hgb 30.5 pg (27.0-32.0); Mean Corpuscular Volume 91.4 fL (81-99); Mean Platelet Vol. 9.5 fl (6.2-12.0); Monocyte# 0.67 X10^3/uL; Monocyte% 9.2 % (0-10); NRBC Flagged by Analyzer 0 % (0-5); Neutrophil # 4.81 X10^3/uL (2.7-7.7); Neutrophil % 66.3 % (47-70); Platelet Count 299 K/mm3 (150-450); RBC Distribution Width CV 13.1 % (11.6-14.6); Red Blood Count 4.76 M/mm3 (4.2-5.4); White Blood Count 7.3 K/mm3 (4.4-11.0)
[2022-06-17 12:47] LABS: ALB/GLOB Ratio 1.2 RATIO (0.9-2.4); AST(SGOT) 13 U/L (15-37); Alanine Aminotransfer ALT/SGPT 29 U/L (13-56); Alkaline Phosphatase 145 U/L (45-117); Anion Gap 6 (5-15); BUN 15 mg/dL (7-18); BUN/Creat Ratio 21.3 RATIO (10-20); Calcium,Total 9.5 mg/dL (8.5-10.1); Chloride 103 mmol/L (98-107); Cholesterol 161 mg/dL (200); EST Glomerular Filtration Rate 92 mL/min (>60); Est Glom Filt Rate - Afr Amer 111 mL/min (>60); Globulin 3.2 g/dL (2.2-4.2); Glucose 118 mg/dL (74-106); High Density Lipoprotein 54 mg/dL; Potassium 3.7 mmol/L (3.5-5.1); Protein, Total 7.2 g/dL (6.4-8.2); Sodium Level 140 mmol/L (136-145); Triglycerides 121 mg/dL; Very Low Density Lipoprotein 24 mg/dL (5-40)
[2022-06-17 13:47] LABS: Hemoglobin A1c 6.3 % (3.8-5.6)
== END | disposition home or self-care (01) ==
LOC: MFPLAB 09:46
PROVIDERS: PCP Family Medicine; Referring Provider Family Medicine; Visit Provider Family Medicine
DX: E78.5 Hyperlipidemia, unspecified (principal); R73.02 Impaired glucose tolerance (oral)
CPT/HCPCS: 36415; 80053; 80061; 83036; 85025

== ENCOUNTER → 2022-07-27 | Outpatient (CLI) | payer OTHER, SELFPAY ==
[2022-07-30 18:51] LABS: HPV APTIMA, High Risk Negative (Negative)
== END | disposition home or self-care (01) ==
LOC: OPBI 10:57
PROVIDERS: PCP Family Medicine; Visit Provider Nurse Practitioner Women's Health
DX: Z01.419 Encounter for gynecological examination (general) (routine) without abnormal findings (principal)
CPT/HCPCS: 87624; 88175; G0145

== ENCOUNTER → 2022-09-17 | Outpatient (CLI) | payer OTHER, SELFPAY ==
[2022-09-17 12:14] LABS: Absolute Lymphocyte Count 1.72 X10^3/uL (0.83-4.51); Absolute Neutrophil Count 4.6 X10^3/uL (2.0-7.7); Basophil# 0.06 X10^3/uL; Basophil% 0.8 % (0-1); Eosinophil# 0.25 X10^3/uL; Eosinophils% 3.4 % (0-5); Hematocrit 42.7 % (37-47); Hemoglobin 13.7 g/dL (12.0-15.0); Lymphocyte # 1.72 X10^3/ul (0.83-4.51); Lymphocyte % 23.4 % (19-41); Mean Corp Hgb Conc 32.1 g/dL (32-36); Mean Corpuscular Hgb 29.8 pg (27.0-32.0); Mean Corpuscular Volume 92.8 fL (81-99); Mean Platelet Vol. 9.6 fl (6.2-12.0); Monocyte# 0.66 X10^3/uL; NRBC Flagged by Analyzer 0 % (0-5); Neutrophil # 4.64 X10^3/uL (2.7-7.7); Neutrophil % 63.1 % (47-70); Platelet Count 293 K/mm3 (150-450); RBC Distribution Width CV 13.3 % (11.6-14.6); RBC Distribution Width SD 45.3 fl (35.1-43.9); White Blood Count 7.4 K/mm3 (4.4-11.0)
[2022-09-17 12:55] LABS: Hemoglobin A1c 5.9 % (3.8-5.6)
[2022-09-17 12:58] LABS: AST(SGOT) 20 U/L (15-37); Alanine Aminotransfer ALT/SGPT 28 U/L (13-56); Albumin, Serum 3.9 g/dL (3.2-5.0); Alkaline Phosphatase 129 U/L (45-117); Anion Gap 8 (5-15); BUN 17 mg/dL (7-18); BUN/Creat Ratio 24.7 RATIO (10-20); Calcium,Total 9.4 mg/dL (8.5-10.1); Chloride 104 mmol/L (98-107); Creatinine, Serum 0.69 mg/dL (0.55-1.02); EST Glomerular Filtration Rate 94 mL/min (>60); Est Glom Filt Rate - Afr Amer 114 mL/min (>60); Globulin 3.9 g/dL (2.2-4.2); Glucose 105 mg/dL (74-106); Potassium 3.8 mmol/L (3.5-5.1); Protein, Total 7.8 g/dL (6.4-8.2); Sodium Level 139 mmol/L (136-145); Thyroid Stim Hormone (TSH) 1.32 uIU/mL (0.358-3.74)
== END | disposition home or self-care (01) ==
LOC: MFPLAB 09:08
PROVIDERS: PCP Family Medicine; Referring Provider Family Medicine; Visit Provider Family Medicine
DX: I10 Essential (primary) hypertension (principal); R73.02 Impaired glucose tolerance (oral)
CPT/HCPCS: 36415; 80053; 83036; 84443; 85025

== ENCOUNTER → 2022-11-06 | Outpatient (CLI) | payer OTHER, SELFPAY ==
--- NOTE | 2022-11-06 09:58 | BI_ITS ---
MAMMOGRAPHY - BILATERAL SCREENING REASON FOR EXAM: Female, 57 years old. Routine annual screening examination. PERTINENT HISTORY: Non-contributory. TECHNIQUE: Digital bilateral breast jassi (3D mammographic acquisition) in the CC and MLO projections. 2-D mediolateral oblique (MLO) and craniocaudad (CC) views of both breasts were obtained. CAD: Full Field Digital Mammography with Computer Added Detection was performed. COMPARISON: Comparison is made with prior examination dated May 09, 2014. FINDINGS: Breast Composition: The breasts are heterogeneously dense, which may obscure small masses. There are no dominant masses or suspicious calcifications. No other significant abnormalities are identified. There has been no significant change since the prior study. BI/SCRN MAMM (CAD)W/JASSI BILAT IMPRESSION: Stable bilateral screening mammogram. Yearly follow-up mammogram recommended. (A) ASSESSMENT CATEGORY: BIRADS Category 1: Negative. A letter regarding these results will be sent to the patient by the facility within 30 days. Approximately 10% of breast cancers are not detected by mammography. A normal mammogram should not delay biopsy of a clinically suspicious abnormality. [id number] Electronically Signed: Hamilton Vance MD at 14:14 EDT ,
== END | disposition home or self-care (01) ==
LOC: OPBI 09:57
PROVIDERS: PCP Family Medicine; Referring Provider Nurse Practitioner Women's Health; Visit Provider Nurse Practitioner Women's Health
DX: Z12.31 Encounter for screening mammogram for malignant neoplasm of breast (principal)
CPT/HCPCS: 77063; 77067

== ENCOUNTER → 2023-01-18 | Outpatient (CLI) | payer OTHER, SELFPAY ==
[2023-01-18 09:31] LABS: Bacteria 0 SEEN /hpf (None Seen); Mucous, Urine 0 SEEN /hpf (<or=2+); Red Blood Cells-Urine 0 SEEN /hpf (0-5)
[2023-01-18 12:08] LABS: Absolute Lymphocyte Count 1.98 X10^3/uL (0.83-4.51); Absolute Neutrophil Count 4.6 X10^3/uL (2.0-7.7); Basophil# 0.04 X10^3/uL; Basophil% 0.5 % (0-1); Eosinophil# 0.19 X10^3/uL; Eosinophils% 2.5 % (0-5); Hematocrit 41.7 % (37-47); Hemoglobin 13.1 g/dL (12.0-15.0); Lymphocyte # 1.98 X10^3/ul (0.83-4.51); Lymphocyte % 26.3 % (19-41); Mean Corp Hgb Conc 31.4 g/dL (32-36); Mean Corpuscular Hgb 28.7 pg (27.0-32.0); Mean Corpuscular Volume 91.4 fL (81-99); Mean Platelet Vol. 9.9 fl (6.2-12.0); Monocyte# 0.76 X10^3/uL; Monocyte% 10.1 % (0-10); NRBC Flagged by Analyzer 0 % (0-5); Neutrophil # 4.55 X10^3/uL (2.7-7.7); Neutrophil % 60.3 % (47-70); Platelet Count 264 K/mm3 (150-450); RBC Distribution Width CV 13.1 % (11.6-14.6); RBC Distribution Width SD 43.6 fl (35.1-43.9); Red Blood Count 4.56 M/mm3 (4.2-5.4); White Blood Count 7.5 K/mm3 (4.4-11.0)
[2023-01-18 12:10] LABS: Color, Urine Yellow (Yellow); Glucose, Dipstick Normal (Normal); Ketone-Dipstick Negative (Negative); Leukocyte Esterase-Dipstick 25 /ul (Negative); Nitrite-Dipstick Negative (Negative); Occult Blood-Urine Negative /ul (Negative); Protein-Dipstick 15 mg/dl (Negative); Urine Bilirubin Dipstick Negative (Negative); Urine Clarity Sl. Cloudy (Clear); Urine Urobilinogen Normal (Normal)
[2023-01-18 12:21] LABS: Squamous Epithelial Cells - UA 0-5 SEEN /hpf (5-10); White Blood Cells 0-5 SEEN /hpf (0-5)
[2023-01-18 12:31] LABS: AST(SGOT) 19 U/L (15-37); Alanine Aminotransfer ALT/SGPT 32 U/L (13-56); Albumin, Serum 3.7 g/dL (3.2-5.0); Alkaline Phosphatase 123 U/L (45-117); Anion Gap 7 (5-15); BUN 15 mg/dL (7-18); BUN/Creat Ratio 21.9 RATIO (10-20); Calcium,Total 9.5 mg/dL (8.5-10.1); Chloride 106 mmol/L (98-107); Cholesterol 136 mg/dL (200); Creatinine, Serum 0.68 mg/dL (0.55-1.02); EST Glomerular Filtration Rate 95 mL/min (>60); Est Glom Filt Rate - Afr Amer 115 mL/min (>60); Globulin 3.8 g/dL (2.2-4.2); Glucose 107 mg/dL (74-106); High Density Lipoprotein 45 mg/dL; Potassium 4.1 mmol/L (3.5-5.1); Protein, Total 7.5 g/dL (6.4-8.2); Sodium Level 139 mmol/L (136-145); Triglycerides 118 mg/dL; Very Low Density Lipoprotein 24 mg/dL (5-40)
[2023-01-18 13:28] LABS: Hemoglobin A1c 6.1 % (3.8-5.6)
== END | disposition home or self-care (01) ==
LOC: MTLAB 09:24
PROVIDERS: PCP Family Medicine; Referring Provider Family Medicine; Visit Provider Family Medicine
DX: I10 Essential (primary) hypertension (principal); R73.02 Impaired glucose tolerance (oral); E78.5 Hyperlipidemia, unspecified
CPT/HCPCS: 36415; 80053; 80061; 81001; 83036; 85025

== ENCOUNTER → 2023-05-28 | Outpatient (CLI) | payer OTHER, SELFPAY ==
[2023-05-28 11:44] LABS: Absolute Lymphocyte Count 1.74 X10^3/uL (0.83-4.51); Absolute Neutrophil Count 4.7 X10^3/uL (2.0-7.7); Basophil# 0.04 X10^3/uL; Basophil% 0.5 % (0-1); Eosinophils% 2.7 % (0-5); Hematocrit 41.6 % (37-47); Hemoglobin 13.5 g/dL (12.0-15.0); Lymphocyte # 1.74 X10^3/ul (0.83-4.51); Lymphocyte % 23.6 % (19-41); Mean Corp Hgb Conc 32.5 g/dL (32-36); Mean Corpuscular Hgb 29.7 pg (27.0-32.0); Mean Corpuscular Volume 91.6 fL (81-99); Mean Platelet Vol. 9.6 fl (6.2-12.0); Monocyte# 0.68 X10^3/uL; Monocyte% 9.2 % (0-10); NRBC Flagged by Analyzer 0 % (0-5); Neutrophil # 4.69 X10^3/uL (2.7-7.7); Neutrophil % 63.7 % (47-70); Platelet Count 285 K/mm3 (150-450); RBC Distribution Width CV 12.9 % (11.6-14.6); RBC Distribution Width SD 43.3 fl (35.1-43.9); Red Blood Count 4.54 M/mm3 (4.2-5.4); White Blood Count 7.4 K/mm3 (4.4-11.0)
[2023-05-28 11:59] LABS: ALB/GLOB Ratio 1.1 RATIO (0.9-2.4); AST(SGOT) 20 U/L (15-37); Alanine Aminotransfer ALT/SGPT 41 U/L (13-56); Albumin, Serum 3.8 g/dL (3.2-5.0); Alkaline Phosphatase 122 U/L (45-117); Anion Gap 6 (5-15); BUN 16 mg/dL (7-18); BUN/Creat Ratio 27.6 RATIO (10-20); Chloride 107 mmol/L (98-107); Cholesterol 132 mg/dL (200); Creatinine, Serum 0.58 mg/dL (0.55-1.02); EST Glomerular Filtration Rate 115 mL/min (>60); Est Glom Filt Rate - Afr Amer 139 mL/min (>60); Globulin 3.6 g/dL (2.2-4.2); Glucose 112 mg/dL (74-106); High Density Lipoprotein 48 mg/dL; Potassium 3.5 mmol/L (3.5-5.1); Protein, Total 7.4 g/dL (6.4-8.2); Sodium Level 141 mmol/L (136-145); Triglycerides 94 mg/dL; Very Low Density Lipoprotein 19 mg/dL (5-40)
[2023-05-28 12:04] LABS: Hemoglobin A1c 5.9 % (3.8-5.6)
== END | disposition home or self-care (01) ==
LOC: MFPLAB 09:42
PROVIDERS: PCP Family Medicine; Visit Provider Family Medicine
DX: I10 Essential (primary) hypertension (principal); R73.02 Impaired glucose tolerance (oral); E78.5 Hyperlipidemia, unspecified
CPT/HCPCS: 36415; 80053; 80061; 83036; 85025

== ENCOUNTER → 2023-06-16 | Outpatient (CLI) | payer OTHER, SELFPAY ==
--- NOTE | 2023-06-20 16:51 | STRESSREP ---
Stress Test Report Date: 06/16/2023 Procedure: Exercise tolerance test Indications: Chest pain Consent: Per the patient Procedure: The patient exercised on a Saulo protocol for 6 minutes and 12 seconds achieving a peak heart rate of 153 bpm (92% predicted maximal heart rate) with a peak blood pressure 144/74 mmHg and a peak MET capacity of approximately 7.6 MET's. The baseline ECG demonstrated normal sinus rhythm. The peak exercise ECG demonstrated no significant ischemic changes. [There were no cardiac dysrhythmias pretest, during exercise, or recovery]. The functional capacity was considered normal for age. The patient had no complaint of chest discomfort during exercise or recovery. The examination was discontinued secondary to not being able to keep up with the treadmill. Impression: 1. Technically adequate (percent predicted maximal heart rate greater than 85%) exercise tolerance test 2. Stress test is negative for exercise-induced chest pain. 3. Stress test test is negative for exercise-induced EKG changes of ischemia. 4. Functional capacity is normal for age This note was generated with [employer] software. It may contain incorrect words, spelling, and punctuation that were not noted in checking the note before signing.
== END | disposition home or self-care (01) ==
PROVIDERS: PCP Family Medicine; Visit Provider Family Medicine
DX: R07.9 Chest pain, unspecified (principal)
CPT/HCPCS: 93017

== ENCOUNTER → 2023-09-24 | Outpatient (CLI) | payer OTHER, SELFPAY ==
[2023-09-24 09:24] LABS: Red Blood Cells-Urine 0 SEEN /hpf (0-5)
[2023-09-24 10:24] LABS: Absolute Lymphocyte Count 1.93 X10^3/uL (0.83-4.51); Absolute Neutrophil Count 4.9 X10^3/uL (2.0-7.7); Basophil# 0.06 X10^3/uL; Basophil% 0.8 % (0-1); Eosinophil# 0.19 X10^3/uL; Eosinophils% 2.5 % (0-5); Hematocrit 42.3 % (37-47); Hemoglobin 13.5 g/dL (12.0-15.0); Lymphocyte # 1.93 X10^3/ul (0.83-4.51); Mean Corp Hgb Conc 31.9 g/dL (32-36); Mean Corpuscular Hgb 28.5 pg (27.0-32.0); Mean Corpuscular Volume 89.4 fL (81-99); Mean Platelet Vol. 9.8 fl (6.2-12.0); Monocyte# 0.63 X10^3/uL; Monocyte% 8.2 % (0-10); NRBC Flagged by Analyzer 0 % (0-5); Neutrophil # 4.88 X10^3/uL (2.7-7.7); Neutrophil % 63.1 % (47-70); Platelet Count 281 K/mm3 (150-450); RBC Distribution Width CV 12.8 % (11.6-14.6); Red Blood Count 4.73 M/mm3 (4.2-5.4); White Blood Count 7.7 K/mm3 (4.4-11.0)
[2023-09-24 11:47] LABS: AST(SGOT) 29 U/L (15-37); Alanine Aminotransfer ALT/SGPT 55 U/L (13-56); Albumin, Serum 3.8 g/dL (3.2-5.0); Alkaline Phosphatase 126 U/L (45-117); Anion Gap 8 (5-15); BUN 16 mg/dL (7-18); Chloride 105 mmol/L (98-107); Cholesterol 127 mg/dL (200); Creatinine, Serum 0.67 mg/dL (0.55-1.02); EST Glomerular Filtration Rate 97 mL/min (>60); Est Glom Filt Rate - Afr Amer 118 mL/min (>60); Globulin 3.7 g/dL (2.2-4.2); Glucose 110 mg/dL (74-106); High Density Lipoprotein 47 mg/dL; Potassium 3.6 mmol/L (3.5-5.1); Protein, Total 7.5 g/dL (6.4-8.2); Sodium Level 138 mmol/L (136-145); Triglycerides 106 mg/dL; Very Low Density Lipoprotein 21 mg/dL (5-40)
[2023-09-24 11:49] LABS: Color, Urine Yellow (Yellow); Glucose, Dipstick Normal (Normal); Ketone-Dipstick Negative (Negative); Leukocyte Esterase-Dipstick 500 /ul (Negative); Nitrite-Dipstick Negative (Negative); Occult Blood-Urine 10 /ul (Negative); Protein-Dipstick Negative (Negative); Urine Bilirubin Dipstick Negative (Negative); Urine Clarity Sl. Cloudy (Clear); Urine Urobilinogen Normal (Normal)
[2023-09-24 12:00] LABS: Squamous Epithelial Cells - UA 5-10 SEEN /hpf (5-10); White Blood Cells 10-25 SEEN /hpf (0-5)
[2023-09-24 12:01] LABS: Bacteria 1+ /hpf (None Seen); Mucous, Urine RARE /hpf (<or=2+)
[2023-09-24 17:43] LABS: Hemoglobin A1c 5.9 % (3.8-5.6)
== END | disposition home or self-care (01) ==
LOC: MFPLAB 09:24
PROVIDERS: PCP Family Medicine; Visit Provider Family Medicine
DX: I10 Essential (primary) hypertension (principal); R73.02 Impaired glucose tolerance (oral)
CPT/HCPCS: 36415; 80053; 80061; 81001; 83036; 85025

== ENCOUNTER → 2024-01-24 | Outpatient (CLI) | payer OTHER, SELFPAY ==
[2024-01-24 12:04] LABS: Absolute Lymphocyte Count 1.97 X10^3/uL (0.83-4.51); Absolute Neutrophil Count 5.1 X10^3/uL (2.0-7.7); Basophil# 0.05 X10^3/uL; Basophil% 0.6 % (0-1); Eosinophil# 0.17 X10^3/uL; Eosinophils% 2.1 % (0-5); Hemoglobin 13.3 g/dL (12.0-15.0); Lymphocyte # 1.97 X10^3/ul (0.83-4.51); Lymphocyte % 24.7 % (19-41); Mean Corp Hgb Conc 31.7 g/dL (32-36); Mean Corpuscular Hgb 28.5 pg (27.0-32.0); Mean Corpuscular Volume 89.9 fL (81-99); Mean Platelet Vol. 9.8 fl (6.2-12.0); Monocyte# 0.68 X10^3/uL; Monocyte% 8.5 % (0-10); NRBC Flagged by Analyzer 0 % (0-5); Neutrophil # 5.06 X10^3/uL (2.7-7.7); Neutrophil % 63.7 % (47-70); Platelet Count 302 K/mm3 (150-450); RBC Distribution Width CV 13.1 % (11.6-14.6); RBC Distribution Width SD 43.1 fl (35.1-43.9); Red Blood Count 4.67 M/mm3 (4.2-5.4)
[2024-01-24 12:23] LABS: AST(SGOT) 26 U/L (15-37); Alanine Aminotransfer ALT/SGPT 41 U/L (13-56); Albumin, Serum 3.8 g/dL (3.2-5.0); Alkaline Phosphatase 129 U/L (45-117); Anion Gap 6 (5-15); BUN 15 mg/dL (7-18); BUN/Creat Ratio 20.6 RATIO (10-20); Calcium,Total 9.3 mg/dL (8.5-10.1); Chloride 104 mmol/L (98-107); Cholesterol 140 mg/dL (200); Creatinine, Serum 0.73 mg/dL (0.55-1.02); EST Glomerular Filtration Rate 88 mL/min (>60); Est Glom Filt Rate - Afr Amer 106 mL/min (>60); Globulin 3.7 g/dL (2.2-4.2); Glucose 117 mg/dL (74-106); High Density Lipoprotein 47 mg/dL; Potassium 3.9 mmol/L (3.5-5.1); Protein, Total 7.5 g/dL (6.4-8.2); Sodium Level 138 mmol/L (136-145); Triglycerides 111 mg/dL; Very Low Density Lipoprotein 22 mg/dL (5-40)
[2024-01-24 12:25] LABS: Hemoglobin A1c 5.7 % (3.8-5.6)
== END | disposition home or self-care (01) ==
PROVIDERS: PCP Family Medicine; Referring Provider Family Medicine; Visit Provider Family Medicine
DX: E78.5 Hyperlipidemia, unspecified (principal); R73.02 Impaired glucose tolerance (oral)
CPT/HCPCS: 36415; 80053; 80061; 83036; 85025

== ENCOUNTER → 2024-06-09 | Outpatient (CLI) | payer OTHER, SELFPAY ==
[2024-06-09 09:54] LABS: Absolute Lymphocyte Count 1.48 X10^3/uL (0.83-4.51); Absolute Neutrophil Count 4.4 X10^3/uL (2.0-7.7); Basophil# 0.05 X10^3/uL; Basophil% 0.7 % (0-1); Eosinophil# 0.22 X10^3/uL; Eosinophils% 3.2 % (0-5); Hematocrit 41.3 % (37-47); Hemoglobin 13.5 g/dL (12.0-15.0); Lymphocyte # 1.48 X10^3/ul (0.83-4.51); Lymphocyte % 21.3 % (19-41); Mean Corp Hgb Conc 32.7 g/dL (32-36); Mean Corpuscular Hgb 29.5 pg (27.0-32.0); Mean Corpuscular Volume 90.2 fL (81-99); Mean Platelet Vol. 9.6 fl (6.2-12.0); Monocyte% 11.5 % (0-10); NRBC Flagged by Analyzer 0 % (0-5); Neutrophil # 4.38 X10^3/uL (2.7-7.7); Platelet Count 276 K/mm3 (150-450); RBC Distribution Width CV 12.9 % (11.6-14.6); RBC Distribution Width SD 42.9 fl (35.1-43.9); Red Blood Count 4.58 M/mm3 (4.2-5.4)
[2024-06-09 12:45] LABS: ALB/GLOB Ratio 1.1 RATIO (0.9-2.4); AST(SGOT) 16 U/L (15-37); Alanine Aminotransfer ALT/SGPT 28 U/L (13-56); Albumin, Serum 3.9 g/dL (3.2-5.0); Alkaline Phosphatase 125 U/L (45-117); Anion Gap 7 (5-15); BUN 15 mg/dL (7-18); Calcium,Total 9.5 mg/dL (8.5-10.1); Chloride 106 mmol/L (98-107); Creatinine, Serum 0.71 mg/dL (0.55-1.02); EST Glomerular Filtration Rate 90 mL/min (>60); Est Glom Filt Rate - Afr Amer 109 mL/min (>60); Globulin 3.5 g/dL (2.2-4.2); Glucose 114 mg/dL (74-106); Potassium 3.6 mmol/L (3.5-5.1); Protein, Total 7.4 g/dL (6.4-8.2); Sodium Level 139 mmol/L (136-145)
== END | disposition home or self-care (01) ==
LOC: MFPLAB 09:30
PROVIDERS: PCP Family Medicine; Referring Provider Family Medicine; Visit Provider Family Medicine
DX: R73.02 Impaired glucose tolerance (oral) (principal)
CPT/HCPCS: 36415; 80053; 83036; 85025

== ENCOUNTER 2024-08-30 08:01 | Day surgery (SDC) | payer OTHER, SELFPAY ==
--- NOTE | 2024-08-28 18:03 | PAT.ANESEVAL ---
Pre-Assessment Diagnosis/Proposed Procedure Planned Operative Procedure(s): COLONOSCOPY Anesthesia History Anesthesia History - interventionist: Anesthesia History - interventionist Hx Hospitalization No 08/28/24 09:41 Any Problems With Anesthesia No 08/28/24 09:41 Cholinesterase deficiency No 08/28/24 09:41 You/Your Family Experience No 08/28/24 09:41 fever (hyperthermia) with Relationship Recent Exposure to Contagious No 02/08/19 13:03 Disease Does patient have nerve No 08/28/24 09:41 stimulator Patient instructed to have device shut off --Does patient have Pacemaker or ICD? When Was Last Pacemaker Check QUESTION #4 FULL TEXT: You/Your Family Experience fever (hyperthermia) with Anesthesia Last Oral Intake Last Oral intake: Last Oral Intake NPO since Meds taken in AM with sips of water? Meds patient instructed to take am of surgery PONV PONV - interventionist: PONV - interventionist Female Yes 08/28/24 09:41 HX of Motion Sickness No 08/28/24 09:41 HX of N/V After Surgery No 08/28/24 09:41 Non-Smoker Yes 08/28/24 09:41 Duration of Surgery greater No 08/28/24 09:41 than 60 minutes Number of Risk Factors 2 08/28/24 09:41 PONV Score Moderate Risk 08/28/24 09:41 Height & Weight Height & Weight: Anesthesia: Height & Weight Height 5 ft 5 in 08/03/24 08:58 Respiratory Assessment Respiratory Assessment - interventionist: Respiratory Tract Infection Hx - interventionist Hx Respiratory Tract Infection Yes: 1.5 WEEKS AGO 08/28/24 09:41 STOP Sleep Apnea STOP Sleep Apnea - interventionist: STOP Sleep Apnea - interventionist Hx Hypertension Yes 08/28/24 09:41 Hx Sleep Apnea No 08/28/24 09:41 CPAP BIPAP Do you snore loudly (louder No 08/28/24 09:41 than talking or can be heard Do you often feel tired/ No 08/28/24 09:41 fatigued/ sleepy during daytime? Has anyone observed you stop No 08/28/24 09:41 breathing during sleep? STOP Results Negative 08/28/24 09:41 QUESTION #5 FULL TEXT : Do you snore loudly (louder than talking or can be heard through closed doors)? 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 Specify any problems Hx of Preganancy in last 3 No 08/28/24 09:41 Months Nurse Filling Out Transfusion [email or web address] 08/28/24 09:41 & Questions: Date: 08/28/24 08/28/24 09:41 Time: 09:44 08/28/24 09:41 Patient unable to answer at this time (ie. confused, unrespo /Reproduction History /Reproductive History - interventionist: /Reproductive Hx- interventionist Hx Now Gestational Age (in weeks): EDC: Hx Hx Para Hx Section SAB No 07/27/22 09:07 [facility] Medical History History of echocardiogram History of stress test Glucose intolerance Rectal polyp Mitral valve prolapse Home Medications ?Medication ?Instructions ?Recorded ?Last Taken ?Type hydrochlorothiazide 12.5 mg tablet 12.5 mg PO DAILY 06/07/18 Unknown History levonorgestrel 1 insert intrauterine ONCE #1 ea 06/07/18 Unknown Clinic rosuvastatin 20 mg tablet 20 mg PO QHS 06/07/18 Unknown History metformin 500 mg tablet 500 mg PO BID 08/03/24 Unknown History losartan 50 mg tablet 50 mg PO DAILY 08/28/24 Unknown History Allergy/AdvReac Type Severity Reaction Status Date / Time No Known Allergies Allergy Verified 08/28/24 09:38 Family History Sister Diabetes Father Diabetes Surgical History History of colonoscopy Hx of colonoscopy H/O rectal polypectomy Social History (Updated 08/03/24 @ 08:24 by Janina Renny) household members: spouse current occupational status: employed Smoking Status: Never smoker alcohol intake: never substance use type: does not use caffeine: Yes what type of physical activity do you participate in: none seatbelt use: always do you feel safe at home: Yes additional social history: - [employer] 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
[2024-08-30] VITALS (8 sets, daily range): BP systolic 101–141; BP diastolic 73–90; PULSE 72–92; RESP 16–20; TEMP 36.3–36.6; O2SAT 95–98; BMI 31.1
[2024-08-30 08:41] LABS: Bedside Glucose 130 mg/dL (74-106)
--- NOTE | 2024-08-30 09:09 | PCM.PRE.AN2 ---
ASA Classification* ASA Classification ASA Classification: 2 Assessment & Plan Anesthesia* Anesthesia Assessment Anesthesia Assessment: Discussed sedation and/or anesthesia options, risks, benefits, and alternatives with patient/parents/legal guardian/POA. Questions invited. The patient/parents/legal guardian/POA seems to understand and agrees to proceed with anesthesia plan. Reviewed the physical assessment, medical history, allergy history and patient home medications list prior to surgery/procedure/anesthetic and documented any changes. Performed airway and anesthesia risk assessments. Anesthesia Type Anesthesia Type: MAC History Source History Obtained from:: Patient and Chart Anesthesia Focused Assessment* Temperature: 98 F Pulse Rate: 84 Blood Pressure: 141/84 Respiratory Rate: 16 Pulse Ox: 98 Oxygen Delivery Method: Room Air Airway Assessment Mouth opens: >3 cm Mallampati Score: I Teeth Condition: Intact Neck Range of motion (ROM): Full ROM Focused Labs Anesthesia Preop lab: CBC WBC 7.0 K/mm3 (4.4-11.0) 06/09/24 09:06/09/24 RBC 4.58 M/mm3 (4.2-5.4) 06/09/24 09:06/09/24 Hgb 13.5 g/dL (12.0-15.0) 06/09/24 09:06/09/24 Hct 41.3 % (37-47) 06/09/24 09:06/09/24 Plt Count 276 K/mm3 (150-450) 06/09/24 09:31 06/09/24 CHEMISTRY Potassium 3.6 mmol/L (3.5-5.1) 06/09/24 09:06/09/24 Sodium 139 mmol/L (136-145) 06/09/24 09:06/09/24 BUN 15 mg/dL (7-18) 06/09/24 09:06/09/24 Creatinine 0.71 mg/dL (0.55-1.02) 06/09/24:06/09/24 Glucose 114 mg/dL (74-106) H 06/09/24 09:31 06/09/24 POC Glucose 130 mg/dL (74-106) H 08/30/24 08:23 08/30/24 TSH 1.32 uIU/mL (0.358-3.74) 09/17/22 09:09 09/17/22 COAG Urine Test Negative Negative 02/15/19 08:16 02/15/19 Pre-Assessment Diagnosis/Proposed Procedure Planned Operative Procedure(s): COLONOSCOPY Anesthesia History 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 When Was Last Pacemaker Check QUESTION #4 FULL TEXT: You/Your Family Experience fever (hyperthermia) with Anesthesia Last Oral Intake Last Oral intake: Last Oral Intake NPO since 18:00 08/30/24 08:26 Meds taken in AM with sips of water? Meds patient instructed to take am of surgery Any additional information?: Yes NPO since: 00:00 Meds taken in AM with sips of water?: No PONV PONV - linux devops engineer: PONV - linux devops engineer Female Yes 08/28/24 09:41 HX of Motion Sickness No 08/28/24 09:41 HX of N/V After Surgery No 08/28/24 09:41 Non-Smoker Yes 08/28/24 09:41 Duration of Surgery greater No 08/28/24 09:41 than 60 minutes Number of Risk Factors 2 08/28/24 09:41 PONV Score Moderate Risk 08/28/24 09:41 Height & Weight Height & Weight: Anesthesia: Height & Weight Height 5 ft 5 in 08/30/24 08:26 Weight: 85 kg 08/30/24 08:26 Body Mass Index (BMI) 31.1 08/30/24 08:26 Respiratory Assessment Respiratory Assessment - linux devops engineer: Respiratory Tract Infection Hx - linux devops engineer Hx Respiratory Tract Infection Yes: 1.5 WEEKS AGO 08/28/24 09:41 STOP Sleep Apnea STOP Sleep Apnea - linux devops engineer: STOP Sleep Apnea - linux devops engineer Hx Hypertension Yes 08/28/24 09:41 Hx Sleep Apnea No 08/28/24 09:41 CPAP BIPAP Do you snore loudly (louder No 08/28/24 09:41 than talking or can be heard Do you often feel tired/ No 08/28/24 09:41 fatigued/ sleepy during daytime? Has anyone observed you stop No 08/28/24 09:41 breathing during sleep? STOP Results Negative 08/28/24 09:41 QUESTION #5 FULL TEXT : Do you snore loudly (louder than talking or can be heard through closed doors)? 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 Specify any problems Hx of Preganancy in last 3 No 08/28/24 09:41 Months Nurse Filling Out Transfusion [email or web address] 08/28/24 09:41 & Questions: Date: 08/28/24 08/28/24 09:41 Time: 09:44 08/28/24 09:41 Patient unable to answer at this time (ie. confused, unrespo /Reproduction History /Reproductive History - linux devops engineer: /Reproductive Hx- linux devops engineer Hx Now Gestational Age (in weeks): EDC: Hx Hx Para Hx Section SAB No 07/27/22 09:07 [facility] Medical History History of echocardiogram History of stress test Glucose intolerance Rectal polyp Mitral valve prolapse Home Medications ?Medication ?Instructions ?Recorded ?Last Taken ?Type hydrochlorothiazide 12.5 mg tablet 12.5 mg PO DAILY 06/07/18 Unknown History levonorgestrel 1 insert intrauterine ONCE #1 ea 06/07/18 Unknown Clinic rosuvastatin 20 mg tablet 20 mg PO QHS 12/04/18 Unknown History metformin 500 mg tablet 500 mg PO BID 08/03/24 Unknown History losartan 50 mg tablet 50 mg PO DAILY 08/28/24 Unknown History Allergy/AdvReac Type Severity Reaction Status Date / Time No Known Allergies Allergy Verified 08/30/24 08:21 Family History Sister Diabetes Father Diabetes Surgical History History of colonoscopy Hx of colonoscopy H/O rectal polypectomy Social History household members: spouse current occupational status: employed Smoking Status: Never smoker alcohol intake: never substance use type: does not use caffeine: Yes what type of physical activity do you participate in: none seatbelt use: always do you feel safe at home: Yes additional social history: - [employer] 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 Physical Exam Const alert and oriented x3 HEENT dentition normal HEENT Narrative: small scab under right nostril, sniffling durign exam Resp normal respiratory effort, normal air movement and clear to auscultation bilaterally Cardio regular rate Neuro oriented x3 and moves all extremities
--- NOTE | 2024-08-30 09:18 | PCM.HP.STD ---
HPI - General General Date of Admission: 08/30/24 Date of Service: 08/30/24 Chief Complaint: Surveillance colonoscopy HPI Narrative PAULINA RUBIO, is a 58 F who presents for colonoscopy today. Patient has a history of colon polyp. Back in 2019, she had an adenomatous polyp removed transanally just a couple centimeters proximal to the anal verge. The surgery was performed by Dr. Villareal. This will be her first colonoscopy since that surgery. She denies any new GI issues or problems. She denies blood in her stools. No black or tarry stools. [facility] Medical History History of echocardiogram History of stress test Glucose intolerance Rectal polyp Mitral valve prolapse Home Medications ?Medication ?Instructions ?Recorded ?Last Taken ?Type hydrochlorothiazide 12.5 mg tablet 12.5 mg PO DAILY 06/07/18 Unknown History levonorgestrel 1 insert intrauterine ONCE #1 ea 06/07/18 Unknown Clinic rosuvastatin 20 mg tablet 20 mg PO QHS 06/07/18 Unknown History metformin 500 mg tablet 500 mg PO BID 08/03/24 Unknown History losartan 50 mg tablet 50 mg PO DAILY 08/28/24 Unknown History Allergy/AdvReac Type Severity Reaction Status Date / Time No Known Allergies Allergy Verified 08/30/24 08:21 Family History Sister Diabetes Father Diabetes Surgical History History of colonoscopy Hx of colonoscopy H/O rectal polypectomy Social History household members: spouse current occupational status: employed Smoking Status: Never smoker alcohol intake: never substance use type: does not use caffeine: Yes what type of physical activity do you participate in: none seatbelt use: always do you feel safe at home: Yes additional social history: - [employer] 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) ROS Constitutional Constitutional: Reports systems reviewed and no addt'l complaints, except as documented Eyes Eyes: Reports systems reviewed and no addt'l complaints, except as documented ENT HEENT: Reports systems reviewed and no addt'l complaints, except as documented Cardiovascular Cardiovascular: Reports systems reviewed and no addt'l complaints, except as documented Respiratory/Chest Respiratory/Chest: Reports systems reviewed and no addt'l complaints, except as documented Gastrointestinal Gastrointestinal: Reports systems reviewed and no addt'l complaints, except as documented Vital Signs Vital Signs Vital Signs: 08/30/24 08:26 08/30/24 08:26 08/30/24 09:11 Temperature 98 F 98 F Temperature Source Temporal Pulse Rate 84 84 Respiratory Rate 16 16 Respiratory Pattern Normal Blood Pressure 141/84 H 141/84 H Blood Pressure Mean 103 Blood Pressure Source Monitor Blood Pressure Position Semi-Fowlers Blood Pressure Location Right Arm Pulse Ox 98 98 Oxygen Delivery Method Room Air Room Air Weight Weight: 187 lb 6.287 oz Body Mass Index (BMI) 31.1 Physical Exam Const alert, oriented x3 and no apparent distress Results Lab / Micro Data Labs: Laboratory Results - last 24 hr 08/30/24 08:23: POC Glucose 130 H Assessment & Plan Assessment/Plan (1) Encounter for screening for malignant neoplasm of colon: PLAN: Plan The patient is a 58-year-old female who presents today for colonoscopy. She has a history of a previous polyp which need to be removed transanally. This will be her first colonoscopy since that procedure in 2019. She denies any issues or problems. We discussed the details of the planned procedure and she wishes to proceed. This will begin momentarily.
--- NOTE | 2024-08-30 10:05 | OP.CCLET_ITS ---
08/30/2024 Bertin Moore [address] [place] [address] Re : Colonoscopy procedure for Malinda Bentonell Dear Dr. Moore This procedure was performed on Friday, August 30, 2024. My impressions and recommendations are as follows: Impressions : - Preparation of the colon was fair. - The entire examined colon is normal on direct and retroflexion views. - No specimens collected. Recommendations : - Discharge patient to home (ambulatory). - High fiber diet. - Repeat colonoscopy in 3 - 5 years for surveillance. - Return to my office PRN. - Continue present medications. My findings are described in the full procedure note, which is enclosed. If I can be of further assistance, please feel free to contact me at . Sincerely, Louie Mcfadden MD 08/30/2024 10:04:10 AM This report has been signed electronically.
--- NOTE | 2024-08-30 10:05 | OP.COLON_ITS ---
Patient Name: Malinda Julian Procedure Date: 08/30/2024 9:14 AM Date of : 1965 Age: 58 Procedure: Colonoscopy Indications: High risk colon cancer surveillance: Personal history of colonic polyps Providers: Louie Mcfadden MD Referring MD: Bertin Moore Medicines: Monitored Anesthesia Care Patient Profile: Refer to note in patient chart for documentation of history and physical. Last Colonoscopy: 5 years ago. Complications: No immediate complications. Estimated blood loss: None. Procedure: Pre-Anesthesia Assessment: - Prior to the procedure, a History and Physical was performed, and patient medications and allergies were reviewed. The patient's tolerance of previous anesthesia was also reviewed. The risks and benefits of the procedure and the sedation options and risks were discussed with the patient. All questions were answered, and informed consent was obtained. Prior Anticoagulants: The patient has taken no anticoagulant or antiplatelet agents. ASA Grade Assessment: II - A patient with mild systemic disease. After reviewing the risks and benefits, the patient was deemed in satisfactory condition to undergo the procedure. After I obtained informed consent, the scope was passed under direct vision. Throughout the procedure, the patient's blood pressure, pulse, and oxygen saturations were monitored continuously. The colonoscope was introduced through the anus and advanced to the cecum, identified by appendiceal orifice and ileocecal valve. The ileocecal valve, appendiceal orifice, and rectum were photographed. The entire colon was well visualized. The colonoscopy was performed without difficulty. The patient tolerated the procedure well. The quality of the bowel preparation was fair. Moderate Sedation: See the other procedure note for documentation of moderate sedation with intraservice time. Scope In: 9:32:12 AM Scope Withdrawal Time 0 hours 12 minutes 24 seconds Scope Out: 9:58:04 AM Total Procedure Duration Time 0 hours 25 minutes 52 seconds Findings: The perianal and digital rectal examinations were normal. The entire examined colon appeared normal on direct and retroflexion views. Impression: - Preparation of the colon was fair. - The entire examined colon is normal on direct and retroflexion views. - No specimens collected. Recommendation: - Discharge patient to home (ambulatory). - High fiber diet. - Repeat colonoscopy in 3 - 5 years for surveillance. - Return to my office PRN. - Continue present medications. Procedure Code(s): --- Professional --- 56324, Colonoscopy, flexible; diagnostic, including collection of specimen(s) by brushing or washing, when performed (separate procedure) Diagnosis Code(s): --- Professional --- Z86.010, Personal history of colonic polyps CPT copyright 2021 [employer]. All rights reserved. The codes documented in this report are preliminary and upon heating element winder review may be revised to meet current compliance requirements. Louie Mcfadden MD 08/30/2024 10:04:10 AM This report has been signed electronically. Number of Addenda: 0 Note Initiated On: 08/30/2024 9:14 AM
--- NOTE | 2024-08-30 10:11 | PCM.POST.ANE ---
Anesthesia: Postop Eval I Current Vital Signs Temperature: 97.6 F Pulse Rate: 92 Blood Pressure: 101/90 Respiratory Rate: 20 Pulse Ox: 97 Oxygen Delivery Method: Room Air Assessment Airway patent: Yes Spontaneous unlabored respirations: Yes Mental status: Awake nausea: Yes Vomiting: Yes Anesthesia Complication: No Fluid Hydration Crystalloid volume administer (ml): 10 Total IV fluid infused: 10 Progress Note Anesthesia document: Postop Eval 1 completed: Yes
--- NOTE | 2024-08-30 10:23 | SUR.PHASEI ---
pt had x1 emesis of clear secretions upon entering pacu.
--- NOTE | 2024-08-30 10:41 | POSTOPAN2_ITS ---
Anesthesia Postop Eval I Sum Postop Eval Completion status Anesthesia document: Postop Eval 1 completed: Yes Anesthesia Postop Eval I Summary Anesthesia Postop Eval I Summary: Anesthesia Postop Eval I: Assessment Summary Airway patent Yes 08/30/24 10:12 [email or web address] Spontaneous unlabored Yes 08/30/24 10:12 [email or web address] respirations Mental status Awake 08/30/24 10:12 [email or web address] nausea Yes 08/30/24 10:12 [email or web address] [email or web address] Vomiting Yes 08/30/24 10:12 [email or web address] Anesthesia Postop Eval I: Fluid Summary Crystalloid volume administer 10 08/30/24 10:12 [email or web address] (ml) Colloids volume administered ( ml) Blood Product volume administered (ml) Total IV fluid infused 10 08/30/24 10:12 [email or web address] Anesthesia Postop Eval I: Summary Notes Anesthesia Complication No 08/30/24 10:12 [email or web address] Anesthesia Complication Comment: Post-operative progress note Anesthesia: Postop Eval II Evaluation Mental status: Awake and Calm Pain Level: 2 nausea: Yes Vomiting: Yes Complications Anesthesia Complication: Yes Anesthesia Complication Comment:: PONV, patient received no opiates only propofol and zofran for the colonoscopy. PONV resolved after 1 episode of emesis
--- NOTE | 2024-08-30 10:41 | PCM.POSTANE2 ---
Anesthesia Postop Eval I Sum Postop Eval Completion status Anesthesia document: Postop Eval 1 completed: Yes Anesthesia Postop Eval I Summary Anesthesia Postop Eval I Summary: Anesthesia Postop Eval I: Assessment Summary Airway patent Yes 08/30/24 10:12 [email or web address] Spontaneous unlabored Yes 08/30/24 10:12 [email or web address] respirations Mental status Awake 08/30/24 10:12 [email or web address] [email or web address] nausea Yes 08/30/24 10:12 COLOR STRAINING [email or web address] Vomiting Yes 08/30/24 10:12 [email or web address] Anesthesia Postop Eval I: Fluid Summary Crystalloid volume administer 10 08/30/24 10:12 [email or web address] (ml) Colloids volume administered ( ml) Blood Product volume administered (ml) Total IV fluid infused 10 08/30/24 10:12 [email or web address] Anesthesia Postop Eval I: Summary Notes Anesthesia Complication No 08/30/24 10:12 [email or web address] Anesthesia Complication Comment: Post-operative progress note Anesthesia: Postop Eval II Evaluation Mental status: Awake and Calm Pain Level: 2 nausea: Yes Vomiting: Yes Complications Anesthesia Complication: Yes Anesthesia Complication Comment:: PONV, patient received no opiates only propofol and zofran for the colonoscopy. PONV resolved after 1 episode of emesis
== END 2024-08-30 10:54 | disposition home or self-care (01) ==
LOC: EN 08:01 → AC 08:02
PROVIDERS: PCP Family Medicine; Referring Provider Family Medicine; Visit Provider Surgery
PROC: 0DJD8ZZ Inspection of Lower Intestinal Tract, Via Natural or Artificial Opening Endoscopic (ICD-10-PCS; CPT 45378; principal; 2024-08-30 08:55)
DX: Z12.11 Encounter for screening for malignant neoplasm of colon (principal); Z86.0100 Personal history of colon polyps, unspecified
CPT/HCPCS: 45378; 82962; A4216; J2405

== ENCOUNTER → 2024-12-08 | Outpatient (CLI) | payer OTHER, SELFPAY ==
[2024-12-08 10:13] LABS: Mucous, Urine 0 SEEN /hpf (<or=2+)
[2024-12-08 12:23] LABS: Absolute Lymphocyte Count 1.84 X10^3/uL (0.83-4.51); Absolute Neutrophil Count 4.3 X10^3/uL (2.0-7.7); Basophil# 0.04 X10^3/uL; Basophil% 0.6 % (0-1); Eosinophil# 0.18 X10^3/uL; Eosinophils% 2.6 % (0-5); Hematocrit 39.2 % (37-47); Hemoglobin 12.8 g/dL (12.0-15.0); Lymphocyte # 1.84 X10^3/ul (0.83-4.51); Lymphocyte % 26.2 % (19-41); Mean Corp Hgb Conc 32.7 g/dL (32-36); Mean Corpuscular Hgb 29.6 pg (27.0-32.0); Mean Corpuscular Volume 90.7 fL (81-99); Mean Platelet Vol. 9.6 fl (6.2-12.0); Monocyte# 0.63 X10^3/uL; NRBC Flagged by Analyzer 0 % (0-5); Neutrophil # 4.31 X10^3/uL (2.7-7.7); Neutrophil % 61.2 % (47-70); Platelet Count 310 K/mm3 (150-450); Red Blood Count 4.32 M/mm3 (4.2-5.4)
[2024-12-08 12:38] LABS: Color, Urine Yellow (Yellow); Glucose, Dipstick Normal (Normal); Ketone-Dipstick Negative (Negative); Leukocyte Esterase-Dipstick 500 /ul (Negative); Nitrite-Dipstick Negative (Negative); Occult Blood-Urine Negative /ul (Negative); Protein-Dipstick Negative (Negative); Urine Bilirubin Dipstick Negative (Negative); Urine Clarity Clear (Clear); Urine Urobilinogen Normal (Normal)
[2024-12-08 12:49] LABS: Bacteria RARE /hpf (None Seen); Red Blood Cells-Urine 0-5 SEEN /hpf (0-5); Squamous Epithelial Cells - UA 0-5 SEEN /hpf (5-10); White Blood Cells 5-10 SEEN /hpf (0-5)
[2024-12-08 12:54] LABS: Hemoglobin A1c 6.2 % (<=5.6)
[2024-12-08 13:05] LABS: ALB/GLOB Ratio 1.5 RATIO (0.9-2.4); AST(SGOT) 23 U/L (<=31); Alanine Aminotransfer ALT/SGPT 24 U/L (<=34); Albumin, Serum 4.4 g/dL (3.5-5.0); Alkaline Phosphatase 120 U/L (35-104); Anion Gap 13 (5-15); BUN 15 mg/dL (4-19); BUN/Creat Ratio 22.4 RATIO (10-20); Calcium,Total 9.5 mg/dL (7.6-11.0); Carbon Dioxide 23.9 mmol/L (21.0-32.0); Chloride 103 mmol/L (98-108); Cholesterol 138 mg/dL (<=200); Creatinine, Serum 0.65 mg/dL (0.70-1.20); EST Glomerular Filtration Rate 103 (>60); Globulin 2.8 g/dL (2.2-4.2); Glucose 117 mg/dL (70-99); High Density Lipoprotein 43 mg/dL; Low Density Lipoprotein Calc. 74 mg/dL; Potassium 3.9 mmol/L (3.3-5.1); Protein, Total 7.2 g/dL (5.9-8.4); Sodium Level 140 mmol/L (133-145); Total Bilirubin 0.34 mg/dL (0.00-1.30); Triglycerides 105 mg/dL; Very Low Density Lipoprotein 21 mg/dL (5-40); cholesterol:hdl ratio screen 3.22
== END | disposition home or self-care (01) ==
LOC: MFPLAB 10:06
PROVIDERS: PCP Family Medicine; Referring Provider Family Medicine; Visit Provider Family Medicine
DX: R82.81 Pyuria (principal); I10 Essential (primary) hypertension; R73.02 Impaired glucose tolerance (oral)
CPT/HCPCS: 36415; 80053; 80061; 81001; 83036; 85025; 87086; 87088

== ENCOUNTER → 2025-04-13 | Outpatient (CLI) | payer OTHER, SELFPAY ==
[2025-04-13 09:13] LABS: Mucous, Urine 0 SEEN /hpf (<or=2+); Red Blood Cells-Urine 0 SEEN /hpf (0-5)
[2025-04-13 10:28] LABS: Hematocrit 40.0 % (37-47); Hemoglobin 12.9 g/dL (12.0-15.0); Immature Granulocytes Count 0.020 X10^3/uL (0.0-0.0); Mean Corp Hgb Conc 32.3 g/dL (32-36); Mean Corpuscular Volume 89.5 fL (81-99); Mean Platelet Vol. 9.6 fl (6.2-12.0); NRBC Flagged by Analyzer 0 % (0-5); Platelet Count 300 K/mm3 (150-450); RBC Distribution Width CV 12.9 % (11.6-14.6); RBC Distribution Width SD 42.1 fl (35.1-43.9); Red Blood Count 4.47 M/mm3 (4.2-5.4); White Blood Count 7.1 K/mm3 (4.4-11.0)
[2025-04-13 10:50] LABS: AST(SGOT) 22 U/L (<=31); Alanine Aminotransfer ALT/SGPT 25 U/L (<=34); Albumin, Serum 4.4 g/dL (3.5-5.0); Alkaline Phosphatase 127 U/L (35-104); Anion Gap 12 (5-15); BUN 15 mg/dL (4-19); BUN/Creat Ratio 24.0 RATIO (10-20); Calcium,Total 9.7 mg/dL (7.6-11.0); Carbon Dioxide 25.0 mmol/L (21.0-32.0); Chloride 102 mmol/L (98-108); Cholesterol 136 mg/dL (<=200); Globulin 3.0 g/dL (2.2-4.2); Glucose 122 mg/dL (70-99); Low Density Lipoprotein Calc. 68 mg/dL; Potassium 3.7 mmol/L (3.3-5.1); Triglycerides 114 mg/dL; Very Low Density Lipoprotein 23 mg/dL (5-40); cholesterol:hdl ratio screen 3.03
[2025-04-13 12:07] LABS: Color, Urine Yellow (Yellow); Glucose, Dipstick Normal (Normal); Ketone-Dipstick Negative (Negative); Leukocyte Esterase-Dipstick 500 /ul (Negative); Nitrite-Dipstick Negative (Negative); Occult Blood-Urine Negative /ul (Negative); Protein-Dipstick 15 mg/dl (Negative); Specific Gravity, Urine 1.010 (1.002-1.030); Urine Bilirubin Dipstick Negative (Negative)
[2025-04-13 12:23] LABS: Squamous Epithelial Cells - UA 0-5 SEEN /hpf (5-10)
== END | disposition home or self-care (01) ==
LOC: MFPLAB 09:12
PROVIDERS: PCP Family Medicine; Visit Provider Family Medicine
DX: R82.81 Pyuria (principal); R73.02 Impaired glucose tolerance (oral); I10 Essential (primary) hypertension; E78.5 Hyperlipidemia, unspecified
CPT/HCPCS: 36415; 80053; 80061; 81001; 83036; 85025; 87077; 87086; 87088; 87186